=== PATIENT | male | born 1950 | race Caucasian/White ===

== ENCOUNTER 2016-07-26 18:29 | Inpatient (IN) | payer OTHER ==
[~2016-07-26] VITALS: Ht 182.9 cm; Wt 75.0 kg
[2016-07-26 19:54] LABS: BASO # 0.1 x10^3/uL (0.0-0.2); BASO % 1 % (0-3); EOS % 4 % (0-3); HEMATOCRIT 27.6 % (39.0-53.0); LYMPH # 0.5 x10^3/uL (1.0-4.8); LYMPH % 9 % (24-48); MEAN CORPUSCULAR HEMOGLOBIN 29 pg (25-35); MEAN CORPUSCULAR HGB CONC 33 g/dL (31-37); MEAN CORPUSCULAR VOLUME 89 fL (79-100); MONO % 12 % (0-9); NEUT % 75 % (31-73); PLATELET COUNT 281 x10^3/uL (140-400); RED CELL DISTRIBUTION WIDTH 17.6 % (11.5-14.5); WHITE BLOOD COUNT 5.9 x10^3/uL (4.0-11.0)
[2016-07-26 20:02] LABS: CALCIUM 9.3 mg/dL (8.5-10.1); CREATININE 1.3 mg/dL (0.7-1.3); GFR 55.6; POTASSIUM 4.2 mmol/L (3.5-5.1)
[2016-07-26 20:04] LABS: INR 1.2 (0.8-1.1); PROTHROMBIN TIME PATIENT 14.5 SEC (11.7-14.0)
[2016-07-26 20:08] LABS: ALBUMIN 2.1 g/dL (3.4-5.0); DIRECT BILIRUBIN 0.1 mg/dL (0.0-0.2); TOTAL BILIRUBIN 0.3 mg/dL (0.2-1.0); TOTAL PROTEIN 6.9 g/dL (6.4-8.2)
--- NOTE | 2016-07-26 20:12 | PHYS DOC ---
Past Medical History Past Medical History: Arthritis, COPD, Hypertension, Liver Disease Past Surgical History: Other Additional Past Surgical Histo: Bilat Fem., back Smoking: Cigarettes Alcohol Use: None Additional Information: Former etoh use Drug Use: None Adult General Chief Complaint Chief Complaint: DYSPNEA/RESPIRATOY DISTRESS [facility] HPI Patient is a 66 year old male who presents by EMS from home for evaluation of difficulty breathing and abdominal pain. He states he was released from the [facility] [place] yesterday after hospitalization for the same. He received paracentesis of "multiple liters of fluid" and "tested positive for cancer cells in his abdominal fluid". He states they offered rehabilitation placement, but he preferred to go home. He has since decided he cannot function at home due to difficulty breathing and diffuse pain including his abdomen. He states his abdominal pain is better today than when he first presented to the [facility]. He denies fever or chills, nausea or vomiting, diarrhea, cough, chest pain, lightheadedness. He states he has no access to home oxygen. He states he asked the ambulance to take him to the [facility], but they were on diversion. Review of Systems Review of Systems Constitutional: Denies fever or chills [] Eyes: Denies change in visual acuity, redness, or eye pain [] HENT: Denies nasal congestion or sore throat [] Respiratory: Denies cough [] Cardiovascular: No additional information not addressed in HPI [] GI: Denies nausea, vomiting, bloody stools or diarrhea [] : Denies dysuria or hematuria [] Musculoskeletal: Denies back pain or joint pain [] Integument: Denies rash or skin lesions [] Neurologic: Denies headache, focal weakness or sensory changes [] Endocrine: Denies polyuria or polydipsia [] Allergies Allergies Allergies Coded Allergies Type Severity Reaction Last Updated Verified No Known Drug Allergies 07/26/16 No Physical Exam Physical Exam Constitutional: Well developed, thin bordering cachexia, no acute distress, non- toxic appearance. [] HENT: Normocephalic, atraumatic, bilateral external ears normal, oropharynx moist, nose normal. [] Eyes: PERRLA, EOMI. [] Neck: Normal range of motion, no tenderness, supple, no stridor. [] Cardiovascular:Heart rate regular rhythm [] Lungs & Thorax: Bilateral breath sounds clear to auscultation [] Abdomen: Bowel sounds normal, soft, no tenderness, soft ascites present. [] Skin: Warm, dry, no erythema, no rash. [] Back: No tenderness, no CVA tenderness. [] Extremities: No tenderness, ROM intact, no edema. [] Neurologic: Alert and oriented X 3, normal motor function, normal sensory function, no focal deficits noted. [] Psychologic: Affect normal, judgement normal, mood normal. [] Current Patient Data Vital Signs Vital Signs Date Time Temp Pulse Resp B/P Pulse Ox O2 Delivery O2 Flow Rate FiO2 07/26/16 19:45 98 98/58 Nasal Cannula 2 07/26/16 18:53 15 95 07/26/16 18:42 97.8 97.8 Lab Values Laboratory Tests Test 07/26/16 19:45 White Blood Count 5.9x10^3/uL (4.0-11.0) Red Blood Count 3.10x10^6/uL (4.30-5.70) L Hemoglobin 9.0g/dL (13.0-17.5) L Hematocrit 27.6% (39.0-53.0) L Mean Corpuscular Volume 89fL (79-100) Mean Corpuscular Hemoglobin 29pg (25-35) Mean Corpuscular Hemoglobin Concent 33g/dL (31-37) Red Cell Distribution Width 17.6% (11.5-14.5) H Platelet Count 281x10^3/uL (140-400) Neutrophils (%) (Auto) 75% (31-73) H Lymphocytes (%) (Auto) 9% (24-48) L Monocytes (%) (Auto) 12% (0-9) H Eosinophils (%) (Auto) 4% (0-3) H Basophils (%) (Auto) 1% (0-3) Neutrophils # (Auto) 4.4x10^3uL (1.8-7.7) Lymphocytes # (Auto) 0.5x10^3/uL (1.0-4.8) L Monocytes # (Auto) 0.7x10^3/uL (0.0-1.1) Eosinophils # (Auto) 0.2x10^3/uL (0.0-0.7) Basophils # (Auto) 0.1x10^3/uL (0.0-0.2) Prothrombin Time 14.5SEC (11.7-14.0) H Prothrombin Time INR 1.2 (0.8-1.1) H Sodium Level 138mmol/L (136-145) Potassium Level 4.2mmol/L (3.5-5.1) Chloride Level 102mmol/L (98-107) Carbon Dioxide Level 29mmol/L (21-32) Anion Gap 7 (6-14) Blood Urea Nitrogen 31mg/dL (8-26) H Creatinine 1.3mg/dL (0.7-1.3) Estimated GFR (Cockcroft-Gault) 55.6 Glucose Level 124mg/dL (70-99) H Calcium Level 9.3mg/dL (8.5-10.1) Total Bilirubin 0.3mg/dL (0.2-1.0) Direct Bilirubin 0.1mg/dL (0.0-0.2) Aspartate Amino Transferase (AST) 19U/L (15-37) Alanine Aminotransferase (ALT) 22U/L (16-63) Alkaline Phosphatase 198U/L (46-116) H Total Protein 6.9g/dL (6.4-8.2) Albumin 2.1g/dL (3.4-5.0) L Laboratory Tests 07/26/16 19:45 Laboratory Tests 07/26/16 19:45 EKG EKG EKG as interpreted by me as normal sinus rhythm, rate 89, no ST-T changes, normal intervals, no ectopy, low voltage Radiology/Procedures Radiology/Procedures Chest xray as interpreted by me with no acute cardiopulmonary disease process Course & Med Decision Making Course & Med Decision Making Pertinent Labs and Imaging studies reviewed. (See chart for details) It appears he likely has COPD with oxygen requirement with resting sats in mid 80s, but does not have oxygen for home. He also does not feel that he can care for himself at home either. Will admit for placement options. Discussed case with Dr. Warner, who will admit. Helen Disclaimer [place] Disclaimer This electronic medical record was generated, in whole or in part, using a voice recognition dictation system. Departure Departure Impression: Primary Impression: Dyspnea Additional Impression: Abdominal pain Disposition: ADMITTED INPATIENT Condition: STABLE Problem Qualifiers Primary Impression: Dyspnea Dyspnea type: other forms of dyspnea Qualified Code: R06.09 - Other forms of dyspnea Additional Impression: Abdominal pain Abdominal location: generalized Qualified Code: R10.84 - Generalized abdominal pain Jessica LE MD Jul 26, 2016 20:12
--- NOTE | 2016-07-26 20:37 | ACF ---
Admission Forms Criteria LIVER DISEASE COMPLICATIONS Clinical Indications for Admission to Inpatient Care (Place 'X' for any and all applicable criteria): Admission is indicated for patient with ANY ONE of the following(1)(2)(3)(4): [X ]I. Inpatient admission required rather than observation care because of ANY ONE of the following: [ ]a) Hemodynamic instability that is severe or persistent [ ]b) Severe electrolyte abnormalities requiring inpatient care [X ]c) Respiratory compromise that is severe or persistent [ ]d) Coagulation abnormal that is severe or persistent [ ]e) Severe pain requiring acute inpatient management [ ]f) Renal insufficiency that is severe or worsening [ ]g) Metabolic abnormalities (e.g., vomiting, hypoglycemia, acidosis) that are severe or persistent [ ]h) Hypovolemia or hypervolemia that is severe or persistent [ ]i) Absent bowel sounds with complete ileus(2) [ ]j) Signs of intestinal obstruction or peritonitis[A] [ ]k) IV fluid to replace significant ongoing losses (>3 L/m2 per day) [ ]l) Continuous IV infusion of anticoagulation, platelet inhibitor, vasoactive, or antiarrhythmic medication [ ]m) Percutaneous or open drainage (e.g., abscess, biliary tract) procedures [ ]n) Parenteral nutrition regimen that must be implemented on inpatient basis [ X]o) Other condition treatment or monitoring requiring inpatient admission [ ]II. Infected hepatic hydrothorax (eg, empyema) [ ]III. Hepatorenal syndrome (eg, elevated. creatinine with adequate volume status and negative evaluation for other cause)(8) [ ]IV. Spontaneous bacterial peritonitis [ ]V. Suspected infected ascites as indicated by ANY ONE of the following: [ ]a) Temp >100 degrees F (37.8 C ) [ ]b) High WBC count [ ]c) Abdominal pain or tenderness not relieved by paracentesis [ ]. New-onset or worsening hepatic encephalopathy(7) [ ]VII. Suspected fulminant hepatic failure (e.g., acute coagulopathy with hepatic encephalopathy or acute elevation of hepatic transaminases to more than 15 times baseline)(4) [ ]VIII. Acute hepatitis (e.g., ALT and AST at least 3 times baseline) with coagulopathy or severe jaundice as indicated by ANY ONE of the following(9)(10): [ ]a) Bilirubin >20 mg/dL (342 moles/L)(11) [ ]b) Acute elevation of PT to >50% above normal or INR >1.5 [ ] IX. Treatment of injury from hepatotoxin (e.g., acetaminophen) that requires inpatient monitoring [ ] X. Acute fatty liver of Extended stay beyond goal length of stay may be needed for(3)(7): [ ]a) Hepatorenal syndrome [ ]b) Severe or persistent hepatic encephalopathy [ ]c) Renal failure due to other causes associated with cirrhosis (e.g., hypovolemia) [ ]d) Severe or persistent coagulation abnormalities [ ]e) Refractory ascites, volume, or electrolyte abnormality [ ]f) Severe or persistent gastroesophageal bleeding [ ]g) Severe infectious or hepatotoxin-induced hepatitis (eg, acetaminophen) [ ]h) Hemodynamic instability that is severe or persistent The original [facility] content created by [employer] has been revised. The portions of the content which have been revised are identified through the use of italic text or in bold, and [facility] has neither reviewed nor approved the modified material. All other unmodified content is copyright [facility] [employer]. Please see references footnoted in the original [employer] edition 2016 Admission Criteria Met?: Yes DORINA JONES Jul 26, 2016 20:37
[2016-07-26] MEDS ORDERED: ONDANSETRON PF 4 MG/2 ML VIAL. IV PRN (20:45)
[2016-07-26] MEDS ORDERED: ACETAMINOPHEN 325 MG TABLET. PO PRN (20:45)
[2016-07-26 22:00] VITALS: BP 85/49
[2016-07-26] MEDS ORDERED: OXYCODONE IR 30 MG TABLET. PO PRN (22:00)
[2016-07-26] MEDS: OXYCODONE IR 5 MG TABLET. PO PRN (22:13)
--- NOTE | 2016-07-26 22:35 | HP ---
ADMIT DATE: 07/26/2016 CHIEF COMPLAINT: Failure to thrive, acute hypoxic respiratory failure. HISTORY OF PRESENT ILLNESS: The patient is a 66-year-old gentleman with longstanding history of failure to thrive and recent development of ascites for which he actually had been seen at the [facility] for [facility], having left [facility] in [place] just yesterday. He presented to the Emergency Room here after going home without oxygen and being unable to cope with his hypoxia and various other medical issues. He relates that he had been at the [facility] for about 10 days due to his ascites. This had tapped a couple of times, mainly for diagnostic purposes. He was told that he had malignant cells in the fluid. Apparently scans were obtained of his belly and chest and specifically pancreas, which did not reveal any primary source for his malignant ascites. He was told that treatment could be done on an outpatient basis, but he declined SNF placement and preferred to go home yesterday. PAST MEDICAL HISTORY: Hypertension, question of liver disease. FAMILY HISTORY: Noncontributory. SOCIAL HISTORY: Lives with a couple of roommates. Quit smoking many years ago, as well as drinking and marijuana, has been on probation for the past 4 years, prohibiting illicit drugs. He is unaware of hepatitis status. ALLERGIES: No known drug allergies. MEDICATIONS: MAR reconciled with home medications. REVIEW OF SYSTEMS: Positive for shortness of breath. No cough. There is significant abdominal distention with fluid. Denies any pain in his abdomen. No nausea or diarrhea. Denies any chest pain or any palpitations. He relates that he had a weight loss of approximately 50 pounds over the past year and a half. Unsure what really caused this. No dysphagia, early satiety, etc. Positive swelling in his lower extremities over the past 3 weeks as well. Rest of organ system review is negative. PHYSICAL EXAMINATION: VITAL SIGNS: From today show a blood pressure of 90/50, heart rate of 92, respiratory rate of 17. He is afebrile. GENERAL: This is a cachectic appearing gentleman, alert and oriented, in mild respiratory distress with O2 by nasal cannula. HEENT: Shows cachectic features with sunken temples. Oral mucosa is pink and moist. NECK: Supple. LUNGS: Fairly clear bilaterally. CARDIOVASCULAR: Regular rate and rhythm. ABDOMEN: Moderately distended, still soft, nontender. EXTREMITIES: Show 1 to 2+ edema with some wrinkling indicating recent shrinkage. SKIN: Very thick and dry over his lower extremities, purplish discoloration in the soles of feet and toes. LABORATORY DATA: CBC from today shows a WBC of 5.9, hemoglobin 9.0, platelets of 281. BUN and creatinine of 31 and 1.3. Electrolytes within normal. LFTs essentially normal save for alkaline phosphatase at 198, albumin at 2.1. Coags at 1.2. IMAGING STUDIES: Chest x-ray was obtained in the Emergency Room, reviewed by myself, it revealed no acute cardiopulmonary abnormality. 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 We will have to obtain [facility]. The patient himself would [facility] [place]. Unfortunately, they were on diversion tonight and EMS brought him here. I completely agree as records as well as his oncologist are there. In the meantime, will try and keep him comfortable with O2, respiratory treatments and pain medications. Labs are relatively stable. I discussed with him that his disease certainly is not curable and may be difficult to treat in his current status, he is aware. With a history of cancer, he is at high risk for blood clotting. His coags as well as platelets are adequate at this point. We will start Lovenox subq. We will also give PPI p.o. FABRICIO OLVERA MD DR: ROSELIA/nts JOB#: [id number] / [id number] RAINER
[2016-07-26] MEDS ORDERED: PROAIR HFA8.5 GM INH (22:37)
[2016-07-26] MEDS ORDERED: OXYC10TA PO (22:37)
[2016-07-26] MEDS ORDERED: IBUP200T58 PO (22:37)
[2016-07-26] MEDS ORDERED: ALBU2.5V5 NEB (22:37)
[2016-07-26 23:00] VITALS: BP 85/49
[2016-07-26] MEDS: IPRATRPIUM/ALBUTEROL 0.5/2.5MG 3 ML NEBU. NEB SCH (23:43)
[2016-07-27 01:26] LABS: OBC FLU VALID
[2016-07-27] MEDS: OXYCODONE IR 5 MG TABLET. PO PRN ×5 (02:50→20:42)
[2016-07-27 03:00] VITALS: BP 82/50
[2016-07-27] MEDS: IPRATRPIUM/ALBUTEROL 0.5/2.5MG 3 ML NEBU. NEB SCH ×4 (06:07→18:13)
--- NOTE | 2016-07-27 06:34 | EKG ---
[facility] [address] [place] [address] Test Date: 2016-07-26 Test Time: 19:01:47 Pat Name: DARLENE HURD Department: Room: [facility] Gender: M Flumer: : 1950 Requested By: Jessica EL Order Number: [id number] Reading MD: Mala Connelly Measurements Intervals [place] Rate: 89 P: [place]: QRS: -127 QRSD: 126 T: 64 QT: 404 QTc: 499 Interpretive Statements SINUS RHYTHM LOW VOLTAGE NON SPECIFIC INTRAVENTRICULAR BLOCK CONSIDER RIGHT VENTRICULAR HYPERTROPHY ABNORMAL ECG RI6.01 No previous ECG available for comparison Electronically Signed On 07-29-2016 20:00:13 BEAD FORMING MACHINE OPERATOR by Mala Connelly
[2016-07-27 07:00] VITALS: BP 89/51
--- NOTE | 2016-07-27 07:59 | RAD ---
Indication shortness of breath for several months. A single view of the chest was obtained. No prior imaging is available. There are probable chronic background changes of emphysema or fibrosis. There is no consolidated pneumonia. Significant pleural fluid is not present. There is no pneumothorax. Bony structures appear grossly intact. IMPRESSION: Chronic changes. No definite acute finding seen in the chest
[2016-07-27] MEDS: POLYETHYLENE GLYCOL 3350 17 GM PACKET. PO SCH (08:45)
[2016-07-27 11:00] VITALS: BP 84/46
[2016-07-27] MEDS ORDERED: ALBUTEROL SULFATE 2.5 MG/3 ML NEBU. NEB PRN (12:00)
[2016-07-27] MEDS ORDERED: NON FORMULARY ITEM (Albuterol Sulfate (Proair Hfa Inhaler) 1 PUFF) INH PRN (12:00)
[2016-07-27] MEDS ORDERED: OXYCODONE IR 5 MG TABLET. PO PRN (12:00)
--- NOTE | 2016-07-27 13:27 | PDOC ---
PROGRESS NOTES Chief Complaint Chief Complaint sob 1. COPD 2. Arthritis, 3. HTN 4. Liver Disease, no details 5. ascites, possible 2/2 cirrohsis, maligancy cells was [facility]: 1. duoneb, albuterol 2. gi consult 3. lower ext US, abd US 4. PAIN CONTRol dvt ppx SW for [facility], pt wants to be transferred. History of Present Illness History of Present Illness on 2L nc ,Baseline same pt [facility], for ascites ,as per pt, there as malignancy, but not sure the type Vitals Vitals Vital Signs Date Time Temp Pulse Resp B/P Pulse Ox O2 Delivery O2 Flow Rate FiO2 07/27/16 13:09 18 97 Nasal Cannula 2.0 07/27/16 11:00 97.3 87 84/46 97.3 Physical Exam General: Alert, Oriented X3, Cooperative Heart: Regular rate, Normal S1 Lungs: Crackles (bl mild) Abdomen: Normal bowel sounds, Soft, No tenderness, Other (moderate distended) Extremities: No clubbing, No cyanosis, Other (bl lower ext severe adema) Labs LABS Laboratory Tests Test 07/26/16 19:45 07/27/16 00:30 White Blood Count 5.9x10^3/uL (4.0-11.0) Red Blood Count 3.10x10^6/uL (4.30-5.70) Hemoglobin 9.0g/dL (13.0-17.5) Hematocrit 27.6% (39.0-53.0) Mean Corpuscular Volume 89fL (79-100) Mean Corpuscular Hemoglobin 29pg (25-35) Mean Corpuscular Hemoglobin Concent 33g/dL (31-37) Red Cell Distribution Width 17.6% (11.5-14.5) Platelet Count 281x10^3/uL (140-400) Neutrophils (%) (Auto) 75% (31-73) Lymphocytes (%) (Auto) 9% (24-48) Monocytes (%) (Auto) 12% (0-9) Eosinophils (%) (Auto) 4% (0-3) Basophils (%) (Auto) 1% (0-3) Neutrophils # (Auto) 4.4x10^3uL (1.8-7.7) Lymphocytes # (Auto) 0.5x10^3/uL (1.0-4.8) Monocytes # (Auto) 0.7x10^3/uL (0.0-1.1) Eosinophils # (Auto) 0.2x10^3/uL (0.0-0.7) Basophils # (Auto) 0.1x10^3/uL (0.0-0.2) Prothrombin Time 14.5SEC (11.7-14.0) Prothromb Time International Ratio 1.2 (0.8-1.1) Sodium Level 138mmol/L (136-145) Potassium Level 4.2mmol/L (3.5-5.1) Chloride Level 102mmol/L (98-107) Carbon Dioxide Level 29mmol/L (21-32) Anion Gap 7 (6-14) Blood Urea Nitrogen 31mg/dL (8-26) Creatinine 1.3mg/dL (0.7-1.3) Estimated GFR (Cockcroft-Gault) 55.6 Glucose Level 124mg/dL (70-99) Calcium Level 9.3mg/dL (8.5-10.1) Total Bilirubin 0.3mg/dL (0.2-1.0) Direct Bilirubin 0.1mg/dL (0.0-0.2) Aspartate Amino Transf (AST/SGOT) 19U/L (15-37) Alanine Aminotransferase (ALT/SGPT) 22U/L (16-63) Alkaline Phosphatase 198U/L (46-116) Total Protein 6.9g/dL (6.4-8.2) Albumin 2.1g/dL (3.4-5.0) Influenza Type A Antigen Negative (NEGATIVE) Influenza Type B Antigen Negative (NEGATIVE) Review of Systems Review of Systems no fever, chills, sob or chest pain Assessment and Plan Assessmemt and Plan Problems Medical Problems: (1) Abdominal pain Status: Acute (2) Dyspnea Status: Acute (3) Hypoxemia Status: Acute Problems: Comment Review of Relevant I have reviewed the following items rodrigo (where applicable) has been applied. Labs Laboratory Tests Test 07/26/16 19:45 07/27/16 00:30 White Blood Count 5.9x10^3/uL (4.0-11.0) Red Blood Count 3.10x10^6/uL (4.30-5.70) Hemoglobin 9.0g/dL (13.0-17.5) Hematocrit 27.6% (39.0-53.0) Mean Corpuscular Volume 89fL (79-100) Mean Corpuscular Hemoglobin 29pg (25-35) Mean Corpuscular Hemoglobin Concent 33g/dL (31-37) Red Cell Distribution Width 17.6% (11.5-14.5) Platelet Count 281x10^3/uL (140-400) Neutrophils (%) (Auto) 75% (31-73) Lymphocytes (%) (Auto) 9% (24-48) Monocytes (%) (Auto) 12% (0-9) Eosinophils (%) (Auto) 4% (0-3) Basophils (%) (Auto) 1% (0-3) Neutrophils # (Auto) 4.4x10^3uL (1.8-7.7) Lymphocytes # (Auto) 0.5x10^3/uL (1.0-4.8) Monocytes # (Auto) 0.7x10^3/uL (0.0-1.1) Eosinophils # (Auto) 0.2x10^3/uL (0.0-0.7) Basophils # (Auto) 0.1x10^3/uL (0.0-0.2) Prothrombin Time 14.5SEC (11.7-14.0) Prothromb Time International Ratio 1.2 (0.8-1.1) Sodium Level 138mmol/L (136-145) Potassium Level 4.2mmol/L (3.5-5.1) Chloride Level 102mmol/L (98-107) Carbon Dioxide Level 29mmol/L (21-32) Anion Gap 7 (6-14) Blood Urea Nitrogen 31mg/dL (8-26) Creatinine 1.3mg/dL (0.7-1.3) Estimated GFR (Cockcroft-Gault) 55.6 Glucose Level 124mg/dL (70-99) Calcium Level 9.3mg/dL (8.5-10.1) Total Bilirubin 0.3mg/dL (0.2-1.0) Direct Bilirubin 0.1mg/dL (0.0-0.2) Aspartate Amino Transf (AST/SGOT) 19U/L (15-37) Alanine Aminotransferase (ALT/SGPT) 22U/L (16-63) Alkaline Phosphatase 198U/L (46-116) Total Protein 6.9g/dL (6.4-8.2) Albumin 2.1g/dL (3.4-5.0) Influenza Type A Antigen Negative (NEGATIVE) Influenza Type B Antigen Negative (NEGATIVE) Laboratory Tests Test 07/26/16 19:45 07/27/16 00:30 White Blood Count 5.9x10^3/uL (4.0-11.0) Red Blood Count 3.10x10^6/uL (4.30-5.70) Hemoglobin 9.0g/dL (13.0-17.5) Hematocrit 27.6% (39.0-53.0) Mean Corpuscular Volume 89fL (79-100) Mean Corpuscular Hemoglobin 29pg (25-35) Mean Corpuscular Hemoglobin Concent 33g/dL (31-37) Red Cell Distribution Width 17.6% (11.5-14.5) Platelet Count 281x10^3/uL (140-400) Neutrophils (%) (Auto) 75% (31-73) Lymphocytes (%) (Auto) 9% (24-48) Monocytes (%) (Auto) 12% (0-9) Eosinophils (%) (Auto) 4% (0-3) Basophils (%) (Auto) 1% (0-3) Neutrophils # (Auto) 4.4x10^3uL (1.8-7.7) Lymphocytes # (Auto) 0.5x10^3/uL (1.0-4.8) Monocytes # (Auto) 0.7x10^3/uL (0.0-1.1) Eosinophils # (Auto) 0.2x10^3/uL (0.0-0.7) Basophils # (Auto) 0.1x10^3/uL (0.0-0.2) Prothrombin Time 14.5SEC (11.7-14.0) Prothromb Time International Ratio 1.2 (0.8-1.1) Sodium Level 138mmol/L (136-145) Potassium Level 4.2mmol/L (3.5-5.1) Chloride Level 102mmol/L (98-107) Carbon Dioxide Level 29mmol/L (21-32) Anion Gap 7 (6-14) Blood Urea Nitrogen 31mg/dL (8-26) Creatinine 1.3mg/dL (0.7-1.3) Estimated GFR (Cockcroft-Gault) 55.6 Glucose Level 124mg/dL (70-99) Calcium Level 9.3mg/dL (8.5-10.1) Total Bilirubin 0.3mg/dL (0.2-1.0) Direct Bilirubin 0.1mg/dL (0.0-0.2) Aspartate Amino Transf (AST/SGOT) 19U/L (15-37) Alanine Aminotransferase (ALT/SGPT) 22U/L (16-63) Alkaline Phosphatase 198U/L (46-116) Total Protein 6.9g/dL (6.4-8.2) Albumin 2.1g/dL (3.4-5.0) Influenza Type A Antigen Negative (NEGATIVE) Influenza Type B Antigen Negative (NEGATIVE) Medications Current Medications Ondansetron HCl (Zofran) 4 mg PRN Q8HRS PRN IV NAUSEA/VOMITING; Start 07/26/16 at 20:45; Stop 07/27/16 at 20:44 Acetaminophen (Tylenol) 650 mg PRN Q4HRS PRN PO FEVER; Start 07/26/16 at 20:45 ; Stop 07/27/16 at 20:44 Oxycodone HCl (Roxicodone) 15 mg PRN Q4HRS PRN PO SEVERE PAIN; Start 07/26/16 at 22:00; Stop 07/26/16 at 22:06; Status DC Polyethylene Glycol (miraLAX PACKET) 17 gm DAILY PO ; Start 07/27/16 at 09:00 Albuterol/ Ipratropium (Duoneb) 3 ml RTQID NEB Last administered on 07/27/16t 12:30; Start 07/26/16 at 23:00 Oxycodone HCl (Roxicodone) 15 mg PRN Q4HRS PRN PO SEVERE PAIN Last administered on 07/27/16 11:56; Start 07/26/16 at 22:06 Albuterol Sulfate (Ventolin Neb Soln) 2.5 mg PRN Q4HRS PRN NEB SHORTNESS OF BREATH; Start 07/27/16 at 12:00 Non-Formulary Medication 1 puff PRN Q6HRS PRN INH SHORTNESS OF BREATH; Start at 12:00; Status UNV Oxycodone HCl (Roxicodone) 40 mg PRN Q6HRS PRN PO PAIN; Start 07/27/16 at 12:00 Active Scripts Active Reported Advil (Ibuprofen) 200 Mg Tablet 400 Mg PO PRN PRN Proair Hfa Inhaler (Albuterol Sulfate) 8.5 Gm Hfa.aer.ad 1 Puff INH PRN Q6HRS PRN Albuterol Sulfate Neb Soln (Albuterol Sulfate) 2.5 Mg/3 Ml Vial.neb 1 Vial NEB PRN Q4HRS Oxycodone Hcl 10 Mg Tablet 40 Mg PO PRN Q4-6HRS PRN Vitals/I & O Vital Sign - Last 24 Hours 07/26/16 07/26/16 07/26/16 07/26/16 18:42 18:53 19:45 20:09 Temp 97.8 97.8 Pulse 93 90 98 94 Resp B/P 94/54 93/58 98/58 90/53 Pulse Ox 88 95 100 O2 Delivery Room Air Nasal Cannula Nasal Cannula Nasal Cannula O2 Flow Rate 2 2 2 07/26/16 07/26/16 07/26/16 07/26/16 20:32 21:30 22:00 22:13 Temp 96.4 96.4 Pulse 92 96 Resp B/P 90/50 85/49 Pulse Ox 96 92 O2 Delivery Nasal Cannula Nasal Cannula Nasal Cannula Nasal Cannula O2 Flow Rate 2 2.0 2.0 2.0 07/26/16 07/26/16 07/27/16 07/27/16 23:00 23:39 02:50 03:00 Temp 96.4 96.6 96.4 96.6 Pulse 96 95 Resp B/P 85/49 82/50 Pulse Ox 92 93 98 O2 Delivery Nasal Cannula Nasal Cannula Nasal Cannula Nasal Cannula O2 Flow Rate 2.0 2.0 2.0 2.0 07/27/16 07/27/16 07/27/16 07/27/16 06:07 06:52 07:00 08:00 Temp 97.6 97.6 Pulse 93 Resp 18 20 B/P 89/51 Pulse Ox 95 96 O2 Delivery Nasal Cannula Nasal Cannula Nasal Cannula Nasal Cannula O2 Flow Rate 2.0 2.0 2.0 2.0 07/27/16 07/27/16 07/27/16 07/27/16 11:00 11:56 12:30 13:09 Temp 97.3 97.3 Pulse 87 Resp 20 18 18 B/P 84/46 Pulse Ox 97 97 97 O2 Delivery Nasal Cannula Nasal Cannula Nasal Cannula Nasal Cannula O2 Flow Rate 2.0 2.0 2.0 2.0 Intake and Output 07/26/16 07/26/16 07/27/16 15:00 23:00 07:00 Intake Total 200 ml 440 ml Balance 200 ml 440 ml RAMYA NELSON MD Jul 27, 2016 13:27
[2016-07-27] MEDS ORDERED: ONDANSETRON PF 4 MG/2 ML VIAL. IV PRN (13:30)
[2016-07-27] MEDS ORDERED: ACETAMINOPHEN 325 MG TABLET. PO PRN (13:30)
[2016-07-27] MEDS: ENOXAPARIN 40 MG/0.4 ML DISP.SYRIN. SQ SCH (14:00)
--- NOTE | 2016-07-27 14:42 | PDOC2 ---
GI CONSULT Reason For Consult: Ascites HPI: HPI: 66 y/o male w/ recent hospital admission at the [facility] for ascites (discharged to home on 07/25 after declining rehab), [facility] last [facility] [place] records unavailable, but pt relates that he underwent paracentesis x 2 w/ removal of 1L of fluid on each occasion; he was told that malignant cells were found in the fluid but imaging revealed no source. Outpatient treatment was planned. He still has abdominal distention and pain, leg pain (mostly right), and back pain. He is SOA. He has been losing weight and not eating well recently (decreased appetite). H/o occasional GERD treated w/ Mylanta PRN. Last BM was 2-3 days ago. Denies previous h/o liver disease. Has had EGD and colonoscopy previously (also at [place]). PMH: PMH: HTN, COPD, GERD, arthritis, femoral bypass, back surgery FH: Family History: No pertinent hx Social History: Smoke: Quit ALCOHOL: other (quit) Drugs: Other (quit) ROS: GEN: Denies fevers, chills, sweats HEENT: Denies blurred vision, sore throat CV: Denies chest pain RESP: +SOA GI: Per HPI : Denies hematuria, dysuria ENDO: +weight loss NEURO: Denies confusion, dizziness MSK: +LE pain SKIN: Denies jaundice, pruritus VItals: Vitals: Vital Signs Date Time Temp Pulse Resp B/P Pulse Ox O2 Delivery O2 Flow Rate FiO2 07/27/16 13:09 18 97 Nasal Cannula 2.0 07/27/16 11:00 97.3 87 84/46 97.3 Labs: Labs: Laboratory Tests Test 07/26/16 19:45 07/27/16 00:30 White Blood Count 5.9x10^3/uL (4.0-11.0) Red Blood Count 3.10x10^6/uL (4.30-5.70) Hemoglobin 9.0g/dL (13.0-17.5) Hematocrit 27.6% (39.0-53.0) Mean Corpuscular Volume 89fL (79-100) Mean Corpuscular Hemoglobin 29pg (25-35) Mean Corpuscular Hemoglobin Concent 33g/dL (31-37) Red Cell Distribution Width 17.6% (11.5-14.5) Platelet Count 281x10^3/uL (140-400) Neutrophils (%) (Auto) 75% (31-73) Lymphocytes (%) (Auto) 9% (24-48) Monocytes (%) (Auto) 12% (0-9) Eosinophils (%) (Auto) 4% (0-3) Basophils (%) (Auto) 1% (0-3) Neutrophils # (Auto) 4.4x10^3uL (1.8-7.7) Lymphocytes # (Auto) 0.5x10^3/uL (1.0-4.8) Monocytes # (Auto) 0.7x10^3/uL (0.0-1.1) Eosinophils # (Auto) 0.2x10^3/uL (0.0-0.7) Basophils # (Auto) 0.1x10^3/uL (0.0-0.2) Prothrombin Time 14.5SEC (11.7-14.0) Prothromb Time International Ratio 1.2 (0.8-1.1) Sodium Level 138mmol/L (136-145) Potassium Level 4.2mmol/L (3.5-5.1) Chloride Level 102mmol/L (98-107) Carbon Dioxide Level 29mmol/L (21-32) Anion Gap 7 (6-14) Blood Urea Nitrogen 31mg/dL (8-26) Creatinine 1.3mg/dL (0.7-1.3) Estimated GFR (Cockcroft-Gault) 55.6 Glucose Level 124mg/dL (70-99) Calcium Level 9.3mg/dL (8.5-10.1) Total Bilirubin 0.3mg/dL (0.2-1.0) Direct Bilirubin 0.1mg/dL (0.0-0.2) Aspartate Amino Transf (AST/SGOT) 19U/L (15-37) Alanine Aminotransferase (ALT/SGPT) 22U/L (16-63) Alkaline Phosphatase 198U/L (46-116) Total Protein 6.9g/dL (6.4-8.2) Albumin 2.1g/dL (3.4-5.0) Influenza Type A Antigen Negative (NEGATIVE) Influenza Type B Antigen Negative (NEGATIVE) Allergies: Coded Allergies: No Known Drug Allergies (Unverified , 07/26/16) Medications: Current Medications Medications (Trade) Dose Ordered Sig/Ekrrie Route PRN Reason Start Time Stop Time Status Last Admin Dose Admin Albuterol/ Ipratropium (Duoneb) 3 ml RTQID NEB 07/26/16 23:00 07/27/16 12:30 Oxycodone HCl (Roxicodone) 15 mg PRN Q4HRS PRN PO SEVERE PAIN 07/26/16 22:06 07/27/16 11:56 Imaging: Imaging: CXR 07/26/16 IMPRESSION: Chronic changes. No definite acute finding seen in the chest. PE: GEN: in chair, moaning in pain, thin HEENT: Atraumatic LUNGS: crackles bilaterally HEART: RRR ABD: BS+, distended/tight, tender diffusely EXTREMITY: BBLE edema SKIN: No jaundice NEURO/PSYCH: A & O 3 A/P: A/P: Ascites, cancer of unknown origin -recent paracentesis x 2 at [place], malignant fluid -had imaging at [place] which was apparently unrevealing for source -denies liver disease Abd pain, weight loss, decreased appetite -abd US ordered BLE edema -LE doppler ordered SOA -- Pt wants to transfer back to [place]. Seems need repeat paracentesis. JER CUMMINGS Jul 27, 2016 14:42
[2016-07-27 15:00] VITALS: BP 77/43
--- NOTE | 2016-07-27 16:15 | RAD ---
Indication swelling. Grayscale color Doppler and spectral imaging was performed. Examination was targeted to the veins of the lower extremities. Bilaterally the common femoral, femoral and popliteal vessels demonstrate normal flow compressibility and augmentation. No thrombus is seen. The visualized calf veins bilaterally appear unremarkable. IMPRESSION: Negative bilateral lower extremity venous analysis for DVT
--- NOTE | 2016-07-27 16:16 | RAD ---
Limited sonogram of the abdomen Indications: Bloating. Ascites. Findings: Sonography of all 4 quadrants of the abdomen was performed. Large amount of ascites is seen. Within the right upper quadrant, the AP dimension of the ascites is 12.1 cm. Within the right lower quadrant, the AP dimension is 8.8 cm. Within the left upper quadrant, the AP dimension is 22.9 cm. Within the left lower quadrant, the AP dimension is 15.1 cm. IMPRESSION: Large amount of ascites.
[2016-07-27 19:00] VITALS: BP 85/49
[2016-07-27 23:00] VITALS: BP 81/45
[2016-07-28] VITALS (13 sets, daily range): BP systolic 70–89; BP diastolic 34–50
[2016-07-28] MEDS: OXYCODONE IR 5 MG TABLET. PO PRN ×4 (02:23→20:59)
[2016-07-28] MEDS: IPRATRPIUM/ALBUTEROL 0.5/2.5MG 3 ML NEBU. NEB SCH ×4 (06:51→19:27)
[2016-07-28] MEDS: POLYETHYLENE GLYCOL 3350 17 GM PACKET. PO SCH (08:38)
--- NOTE | 2016-07-28 10:36 | PDOC ---
Provider Note Provider Note The sono guided paracentesis was performed without difficulty with 7000 cc of bloody fluid removed. A sample was sent to the lab for appropriate studies. The patient tolerated the procedure well and was returned to the floor in stable condition. PANKAJ MILLER MD Jul 28, 2016 10:36
--- NOTE | 2016-07-28 10:49 | RAD ---
Ultrasound-guided paracentesis, 07/28/2016: History: Ascites Preliminary scans demonstrated a large volume of ascites throughout the abdomen. An appropriate spot for paracentesis was marked on the skin surface laterally on the right. Under local anesthesia and aseptic conditions a 6 Polish safetycentesis catheter was placed into a large collection of ascites in the right flank region. Bloody ascites was encountered in this patient with a history of malignant ascites. A total of 7000 cc of fluid was removed. A sample was sent to the lab for appropriate studies. There is residual ascites, however, removal of additional fluid was not considered to be advisable due to the patient's poor clinical condition and the risk of hypotension. The patient tolerated the procedure well and was returned to the floor in stable condition.
[2016-07-28] MEDS: MORPHINE SULFATE 2 MG/ML DISP.SYRIN. IV PRN (12:15)
[2016-07-28] MEDS ORDERED: ALBUMIN HUMAN 25% 100 ML IV ONE ×2 (13:00→15:30)
[2016-07-28] MEDS: ENOXAPARIN 40 MG/0.4 ML DISP.SYRIN. SQ SCH (13:24)
--- NOTE | 2016-07-28 15:25 | PDOC ---
PROGRESS NOTES Chief Complaint Chief Complaint sob 1. COPD 2. Arthritis, 3. HTN 4. Liver Disease, no details 5. ascites, possible 2/2 cirrohsis, maligancy cells was found as per [place] 6. anemia, normocytic 7. body and bone pain 8. hypotension, likely 2/2 liver dz, asymptomatic plan: 1. duoneb, albuterol 2. gi consulted, paracentesis 07/28 7L, Result pending 3. lower ext US neg for DVT, abd US done 4. PAIN CONTRol dvt ppx [facility] for [facility], pt wants to be transferred. ALBUmin 25% 50g x1 07/28 bone scan to rule out bone mets History of Present Illness History of Present Illness on 2L nc ,Baseline same pt [place] [facility] 2 [facility] ago, for ascites ,as per pt, there as malignancy, but not sure the type paracentesis on 07/27 7L, abd much soft low BP WHOLE body pain Vitals Vitals Vital Signs Date Time Temp Pulse Resp B/P Pulse Ox O2 Delivery O2 Flow Rate FiO2 07/28/16 14:50 96.3 93 20 74/38 85 Room Air 96.3 07/28/16 14:44 2.0 Physical Exam General: Alert, Oriented X3, Cooperative Heart: Regular rate, Normal S1 Lungs: Crackles (bl mild) Abdomen: Normal bowel sounds, Soft, No tenderness, Other (moderate distended) Extremities: No clubbing, No cyanosis, Other (bl lower ext severe adema) Review of Systems Review of Systems no fever, chills, sob or chest pain Assessment and Plan Assessmemt and Plan Problems Medical Problems: (1) Abdominal pain Status: Acute (2) Dyspnea Status: Acute (3) Hypoxemia Status: Acute Problems: Comment Review of Relevant I have reviewed the following items rodrigo (where applicable) has been applied. Labs Laboratory Tests Test 07/26/16 19:45 07/27/16 00:30 White Blood Count 5.9x10^3/uL (4.0-11.0) Red Blood Count 3.10x10^6/uL (4.30-5.70) Hemoglobin 9.0g/dL (13.0-17.5) Hematocrit 27.6% (39.0-53.0) Mean Corpuscular Volume 89fL (79-100) Mean Corpuscular Hemoglobin 29pg (25-35) Mean Corpuscular Hemoglobin Concent 33g/dL (31-37) Red Cell Distribution Width 17.6% (11.5-14.5) Platelet Count 281x10^3/uL (140-400) Neutrophils (%) (Auto) 75% (31-73) Lymphocytes (%) (Auto) 9% (24-48) Monocytes (%) (Auto) 12% (0-9) Eosinophils (%) (Auto) 4% (0-3) Basophils (%) (Auto) 1% (0-3) Neutrophils # (Auto) 4.4x10^3uL (1.8-7.7) Lymphocytes # (Auto) 0.5x10^3/uL (1.0-4.8) Monocytes # (Auto) 0.7x10^3/uL (0.0-1.1) Eosinophils # (Auto) 0.2x10^3/uL (0.0-0.7) Basophils # (Auto) 0.1x10^3/uL (0.0-0.2) Prothrombin Time 14.5SEC (11.7-14.0) Prothromb Time International Ratio 1.2 (0.8-1.1) Sodium Level 138mmol/L (136-145) Potassium Level 4.2mmol/L (3.5-5.1) Chloride Level 102mmol/L (98-107) Carbon Dioxide Level 29mmol/L (21-32) Anion Gap 7 (6-14) Blood Urea Nitrogen 31mg/dL (8-26) Creatinine 1.3mg/dL (0.7-1.3) Estimated GFR (Cockcroft-Gault) 55.6 Glucose Level 124mg/dL (70-99) Calcium Level 9.3mg/dL (8.5-10.1) Total Bilirubin 0.3mg/dL (0.2-1.0) Direct Bilirubin 0.1mg/dL (0.0-0.2) Aspartate Amino Transf (AST/SGOT) 19U/L (15-37) Alanine Aminotransferase (ALT/SGPT) 22U/L (16-63) Alkaline Phosphatase 198U/L (46-116) Total Protein 6.9g/dL (6.4-8.2) Albumin 2.1g/dL (3.4-5.0) Influenza Type A Antigen Negative (NEGATIVE) Influenza Type B Antigen Negative (NEGATIVE) Medications Current Medications Ondansetron HCl (Zofran) 4 mg PRN Q8HRS PRN IV NAUSEA/VOMITING; Start 07/26/16 at 20:45; Stop 07/27/16 at 20:44; Status DC Acetaminophen (Tylenol) 650 mg PRN Q4HRS PRN PO FEVER; Start 07/26/16 at 20:45 ; Stop 07/27/16 at 20:44; Status DC Oxycodone HCl (Roxicodone) 15 mg PRN Q4HRS PRN PO SEVERE PAIN; Start 07/26/16 at 22:00; Stop 07/26/16 at 22:06; Status DC Polyethylene Glycol (miraLAX PACKET) 17 gm DAILY PO ; Start 07/27/16 at 09:00 Albuterol/ Ipratropium (Duoneb) 3 ml RTQID NEB Last administered on 07/28/16t 11:02; Start 07/26/16 at 23:00 Oxycodone HCl (Roxicodone) 15 mg PRN Q4HRS PRN PO SEVERE PAIN Last administered on 07/28/16t 13:44; Start 07/26/16 at 22:06 Albuterol Sulfate (Ventolin Neb Soln) 2.5 mg PRN Q4HRS PRN NEB SHORTNESS OF BREATH; Start 07/27/16 at 12:00 Non-Formulary Medication 1 puff PRN Q6HRS PRN INH SHORTNESS OF BREATH; Start at 12:00; Status UNV Oxycodone HCl (Roxicodone) 40 mg PRN Q6HRS PRN PO PAIN; Start 07/27/16 at 12:00 ; Stop 07/27/16 at 13:26; Status DC Acetaminophen (Tylenol) 650 mg PRN Q6HRS PRN PO MILD PAIN / TEMP; Start at 13:30 Ondansetron HCl (Zofran) 4 mg PRN Q6HRS PRN IV NAUSEA/VOMITING; Start 07/27/16 at 13:30 Enoxaparin Sodium (Lovenox 40mg Syringe) 40 mg Q24H SQ ; Start 07/27/16 at 14:00 Morphine Sulfate 2 mg 2 mg PRN Q4HRS PRN IV PAIN SEV Last administered on t 12:15; Start 07/28/16 at 12:15 Albumin Human (Albuminar) 100 ml @ 100 mls/hr 1X ONCE IV Last administered on 07/28/16t 13:43; Start 07/28/16 at 13:00; Stop 07/28/16 at 13:59; Status DC Active Scripts Active Reported Advil (Ibuprofen) 200 Mg Tablet 400 Mg PO PRN PRN Proair Hfa Inhaler (Albuterol Sulfate) 8.5 Gm Hfa.aer.ad 1 Puff INH PRN Q6HRS PRN Albuterol Sulfate Neb Soln (Albuterol Sulfate) 2.5 Mg/3 Ml Vial.neb 1 Vial NEB PRN Q4HRS Oxycodone Hcl 10 Mg Tablet 40 Mg PO PRN Q4-6HRS PRN Vitals/I & O Vital Sign - Last 24 Hours 07/27/16 07/27/16 07/27/16 07/27/16 15:56 16:07 18:13 19:00 Temp 97.9 97.9 Pulse 91 Resp 18 20 B/P 85/49 Pulse Ox 94 97 O2 Delivery Nasal Cannula Nasal Cannula Nasal Cannula Nasal Cannula O2 Flow Rate 2.0 2.0 2.0 2.0 07/27/16 07/27/16 07/27/16 07/28/16 20:00 20:42 23:00 02:23 Temp 96.3 96.3 Pulse 89 Resp 21 B/P 81/45 Pulse Ox 94 O2 Delivery Nasal Cannula Nasal Cannula Nasal Cannula Nasal Cannula O2 Flow Rate 2.0 2.0 07/28/16 07/28/16 07/28/16 07/28/16 03:00 06:51 07:25 08:00 Temp 97.1 97.1 Pulse 80 93 Resp 20 20 B/P 89/41 80/50 Pulse Ox 94 96 91 O2 Delivery Nasal Cannula Nasal Cannula Nasal Cannula Nasal Cannula O2 Flow Rate 2.0 2.0 2.0 2.0 07/28/16 07/28/16 07/28/16 07/28/16 08:37 11:01 11:07 11:30 Temp 95.7 95.7 Pulse 101 87 Resp 18 20 B/P 74/40 74/34 Pulse Ox 91 100 98 61 O2 Delivery Nasal Cannula Nasal Cannula Nasal Cannula O2 Flow Rate 2.0 2.0 2.0 07/28/16 07/28/16 07/28/16 07/28/16 11:45 12:00 12:15 12:15 Pulse 97 94 B/P 80/41 75/40 83/40 Pulse Ox 95 98 97 O2 Delivery Nasal Cannula O2 Flow Rate 2.0 07/28/16 07/28/16 07/28/16 07/28/16 12:45 12:45 13:15 13:44 Pulse 78 104 Resp 16 16 B/P 85/38 70/41 Pulse Ox 73 71 71 71 O2 Delivery Nasal Cannula Nasal Cannula O2 Flow Rate 2.0 2.0 07/28/16 07/28/16 07/28/16 13:45 14:44 14:50 Temp 95.2 96.3 95.2 96.3 Pulse 95 93 Resp 16 20 B/P 82/44 74/38 Pulse Ox 96 71 85 O2 Delivery Nasal Cannula Room Air O2 Flow Rate 2.0 Intake and Output 07/27/16 07/27/16 07/28/16 15:00 23:00 07:00 Intake Total 250 ml 1000 ml 800 ml Balance 250 ml 1000 ml 800 ml RAMYA NELSON MD Jul 28, 2016 15:25
[2016-07-29] MEDS: OXYCODONE IR 5 MG TABLET. PO PRN ×4 (02:28→20:45)
[2016-07-29 03:56] VITALS: BP 80/43
[2016-07-29 07:00] VITALS: BP 87/48
[2016-07-29 07:15] LABS: BASO % 1 % (0-3); EOS % 5 % (0-3); HEMATOCRIT 25.3 % (39.0-53.0); HEMOGLOBIN 8.2 g/dL (13.0-17.5); LYMPH # 0.5 x10^3/uL (1.0-4.8); LYMPH % 9 % (24-48); MEAN CORPUSCULAR HEMOGLOBIN 29 pg (25-35); MEAN CORPUSCULAR HGB CONC 33 g/dL (31-37); MEAN CORPUSCULAR VOLUME 89 fL (79-100); MONO % 11 % (0-9); NEUT % 75 % (31-73); PLATELET COUNT 261 x10^3/uL (140-400); RED BLOOD COUNT 2.84 x10^6/uL (4.30-5.70); RED CELL DISTRIBUTION WIDTH 16.9 % (11.5-14.5); WHITE BLOOD COUNT 5.4 x10^3/uL (4.0-11.0)
[2016-07-29] MEDS: IPRATRPIUM/ALBUTEROL 0.5/2.5MG 3 ML NEBU. NEB SCH ×4 (07:16→20:31)
[2016-07-29 07:32] LABS: CREATININE 1.3 mg/dL (0.7-1.3); GFR 55.6; POTASSIUM 4.4 mmol/L (3.5-5.1)
[2016-07-29] MEDS: POLYETHYLENE GLYCOL 3350 17 GM PACKET. PO SCH (08:04)
[2016-07-29 10:50] VITALS: BP 81/42
[2016-07-29] MEDS: ENOXAPARIN 40 MG/0.4 ML DISP.SYRIN. SQ SCH (13:09)
--- NOTE | 2016-07-29 14:00 | PDOC ---
PROGRESS NOTES Chief Complaint Chief Complaint sob 1. COPD 2. Arthritis, 3. HTN 4. Liver Disease, no details 5. ascites, possible 2/2 cirrohsis, maligancy cells was found as per [place] 6. anemia, normocytic 7. body and bone pain 8. hypotension, likely 2/2 liver dz, asymptomatic plan: 1. duoneb, albuterol 2. gi consulted, paracentesis 07/28 7L, Result pending 3. lower ext US neg for DVT, abd US done 4. PAIN CONTRol dvt [facility] for [facility], pt wants to be transferred. ALBUmin 25% 50g x1 07/28 bone scan to rule out bone mets tmr waiting to transfer TO [place] History of Present Illness History of Present Illness on 2L nc ,Baseline same sob better pt was just DCed from [place] 2 ds ago, for ascites ,as per pt, there as malignancy, but not sure the type paracentesis on 07/27 7L, abd much soft low BP WHOLE body pain Vitals Vitals Vital Signs Date Time Temp Pulse Resp B/P Pulse Ox O2 Delivery O2 Flow Rate FiO2 07/29/16 13:08 16 93 Nasal Cannula 2.0 07/29/16 10:50 97.1 95 81/42 97.1 Physical Exam General: Alert, Oriented X3, Cooperative Heart: Regular rate, Normal S1 Lungs: Crackles (bl mild) Abdomen: Normal bowel sounds, Soft, No tenderness, Other (moderate distended) Extremities: No clubbing, No cyanosis, Other (bl lower ext severe adema) Labs LABS Laboratory Tests Test 07/29/16 06:55 White Blood Count 5.4x10^3/uL (4.0-11.0) Red Blood Count 2.84x10^6/uL (4.30-5.70) Hemoglobin 8.2g/dL (13.0-17.5) Hematocrit 25.3% (39.0-53.0) Mean Corpuscular Volume 89fL (79-100) Mean Corpuscular Hemoglobin 29pg (25-35) Mean Corpuscular Hemoglobin Concent 33g/dL (31-37) Red Cell Distribution Width 16.9% (11.5-14.5) Platelet Count 261x10^3/uL (140-400) Neutrophils (%) (Auto) 75% (31-73) Lymphocytes (%) (Auto) 9% (24-48) Monocytes (%) (Auto) 11% (0-9) Eosinophils (%) (Auto) 5% (0-3) Basophils (%) (Auto) 1% (0-3) Neutrophils # (Auto) 4.1x10^3uL (1.8-7.7) Lymphocytes # (Auto) 0.5x10^3/uL (1.0-4.8) Monocytes # (Auto) 0.6x10^3/uL (0.0-1.1) Eosinophils # (Auto) 0.2x10^3/uL (0.0-0.7) Basophils # (Auto) 0.0x10^3/uL (0.0-0.2) Sodium Level 138mmol/L (136-145) Potassium Level 4.4mmol/L (3.5-5.1) Chloride Level 103mmol/L (98-107) Carbon Dioxide Level 29mmol/L (21-32) Anion Gap 6 (6-14) Blood Urea Nitrogen 31mg/dL (8-26) Creatinine 1.3mg/dL (0.7-1.3) Estimated GFR (Cockcroft-Gault) 55.6 Glucose Level 100mg/dL (70-99) Calcium Level 9.0mg/dL (8.5-10.1) Review of Systems Review of Systems no fever, chills, sob or chest pain Assessment and Plan Assessmemt and Plan Problems Medical Problems: (1) Abdominal pain Status: Acute (2) Dyspnea Status: Acute (3) Hypoxemia Status: Acute Problems: Comment Review of Relevant I have reviewed the following items rodrigo (where applicable) has been applied. Labs Laboratory Tests Test 07/29/16 06:55 White Blood Count 5.4x10^3/uL (4.0-11.0) Red Blood Count 2.84x10^6/uL (4.30-5.70) Hemoglobin 8.2g/dL (13.0-17.5) Hematocrit 25.3% (39.0-53.0) Mean Corpuscular Volume 89fL (79-100) Mean Corpuscular Hemoglobin 29pg (25-35) Mean Corpuscular Hemoglobin Concent 33g/dL (31-37) Red Cell Distribution Width 16.9% (11.5-14.5) Platelet Count 261x10^3/uL (140-400) Neutrophils (%) (Auto) 75% (31-73) Lymphocytes (%) (Auto) 9% (24-48) Monocytes (%) (Auto) 11% (0-9) Eosinophils (%) (Auto) 5% (0-3) Basophils (%) (Auto) 1% (0-3) Neutrophils # (Auto) 4.1x10^3uL (1.8-7.7) Lymphocytes # (Auto) 0.5x10^3/uL (1.0-4.8) Monocytes # (Auto) 0.6x10^3/uL (0.0-1.1) Eosinophils # (Auto) 0.2x10^3/uL (0.0-0.7) Basophils # (Auto) 0.0x10^3/uL (0.0-0.2) Sodium Level 138mmol/L (136-145) Potassium Level 4.4mmol/L (3.5-5.1) Chloride Level 103mmol/L (98-107) Carbon Dioxide Level 29mmol/L (21-32) Anion Gap 6 (6-14) Blood Urea Nitrogen 31mg/dL (8-26) Creatinine 1.3mg/dL (0.7-1.3) Estimated GFR (Cockcroft-Gault) 55.6 Glucose Level 100mg/dL (70-99) Calcium Level 9.0mg/dL (8.5-10.1) Laboratory Tests Test 07/29/16 06:55 White Blood Count 5.4x10^3/uL (4.0-11.0) Red Blood Count 2.84x10^6/uL (4.30-5.70) Hemoglobin 8.2g/dL (13.0-17.5) Hematocrit 25.3% (39.0-53.0) Mean Corpuscular Volume 89fL (79-100) Mean Corpuscular Hemoglobin 29pg (25-35) Mean Corpuscular Hemoglobin Concent 33g/dL (31-37) Red Cell Distribution Width 16.9% (11.5-14.5) Platelet Count 261x10^3/uL (140-400) Neutrophils (%) (Auto) 75% (31-73) Lymphocytes (%) (Auto) 9% (24-48) Monocytes (%) (Auto) 11% (0-9) Eosinophils (%) (Auto) 5% (0-3) Basophils (%) (Auto) 1% (0-3) Neutrophils # (Auto) 4.1x10^3uL (1.8-7.7) Lymphocytes # (Auto) 0.5x10^3/uL (1.0-4.8) Monocytes # (Auto) 0.6x10^3/uL (0.0-1.1) Eosinophils # (Auto) 0.2x10^3/uL (0.0-0.7) Basophils # (Auto) 0.0x10^3/uL (0.0-0.2) Sodium Level 138mmol/L (136-145) Potassium Level 4.4mmol/L (3.5-5.1) Chloride Level 103mmol/L (98-107) Carbon Dioxide Level 29mmol/L (21-32) Anion Gap 6 (6-14) Blood Urea Nitrogen 31mg/dL (8-26) Creatinine 1.3mg/dL (0.7-1.3) Estimated GFR (Cockcroft-Gault) 55.6 Glucose Level 100mg/dL (70-99) Calcium Level 9.0mg/dL (8.5-10.1) Medications Current Medications Ondansetron HCl (Zofran) 4 mg PRN Q8HRS PRN IV NAUSEA/VOMITING; Start 07/26/16 at 20:45; Stop 07/27/16 at 20:44; Status DC Acetaminophen (Tylenol) 650 mg PRN Q4HRS PRN PO FEVER; Start 07/26/16 at 20:45 ; Stop 07/27/16 at 20:44; Status DC Oxycodone HCl (Roxicodone) 15 mg PRN Q4HRS PRN PO SEVERE PAIN; Start 07/26/16 at 22:00; Stop 07/26/16 at 22:06; Status DC Polyethylene Glycol (miraLAX PACKET) 17 gm DAILY PO ; Start 07/27/16 at 09:00 Albuterol/ Ipratropium (Duoneb) 3 ml RTQID NEB Last administered on 07/29/16 11:34; Start 07/26/16 at 23:00 Oxycodone HCl (Roxicodone) 15 mg PRN Q4HRS PRN PO SEVERE PAIN Last administered on 07/29/16 13:08; Start 07/26/16 at 22:06 Albuterol Sulfate (Ventolin Neb Soln) 2.5 mg PRN Q4HRS PRN NEB SHORTNESS OF BREATH; Start 07/27/16 at 12:00 Non-Formulary Medication 1 puff PRN Q6HRS PRN INH SHORTNESS OF BREATH; Start at 12:00; Status UNV Oxycodone HCl (Roxicodone) 40 mg PRN Q6HRS PRN PO PAIN; Start 07/27/16 at 12:00 ; Stop 07/27/16 at 13:26; Status DC Acetaminophen (Tylenol) 650 mg PRN Q6HRS PRN PO MILD PAIN / TEMP; Start at 13:30 Ondansetron HCl (Zofran) 4 mg PRN Q6HRS PRN IV NAUSEA/VOMITING; Start 07/27/16 at 13:30 Enoxaparin Sodium (Lovenox 40mg Syringe) 40 mg Q24H SQ ; Start 07/27/16 at 14:00 Morphine Sulfate 2 mg 2 mg PRN Q4HRS PRN IV PAIN SEV Last administered on 12:15; Start 07/28/16 at 12:15 Albumin Human 100 ml @ 100 mls/hr 1X ONCE IV Last administered on 07/28/16 13:43; Start 07/28/16 at 13:00; Stop 07/28/16 at 13:59; Status DC Albumin Human (Albuminar) 100 ml @ 100 mls/hr 1X ONCE IV Last administered on 07/28/16 16:58; Start 07/28/16 at 15:30; Stop 07/28/16 at 16:29; Status DC Active Scripts Active Reported Advil (Ibuprofen) 200 Mg Tablet 400 Mg PO PRN PRN Proair Hfa Inhaler (Albuterol Sulfate) 8.5 Gm Hfa.aer.ad 1 Puff INH PRN Q6HRS PRN Albuterol Sulfate Neb Soln (Albuterol Sulfate) 2.5 Mg/3 Ml Vial.neb 1 Vial NEB PRN Q4HRS Oxycodone Hcl 10 Mg Tablet 40 Mg PO PRN Q4-6HRS PRN Vitals/I & O Vital Sign - Last 24 Hours 07/28/16 07/28/16 07/28/16 07/28/16 14:50 16:23 19:00 19:29 Temp 96.3 97.6 96.3 97.6 Pulse 93 93 Resp 20 16 B/P 74/38 73/47 Pulse Ox 85 95 94 O2 Delivery Room Air Nasal Cannula Nasal Cannula Nasal Cannula O2 Flow Rate 2.0 2.0 2.0 07/28/16 07/28/16 07/28/16 07/29/16 20:00 20:59 23:11 02:28 Temp 97.7 97.7 Pulse 71 Resp 12 B/P 78/44 Pulse Ox 91 O2 Delivery Nasal Cannula Nasal Cannula Nasal Cannula Nasal Cannula O2 Flow Rate 2.0 2.0 2.0 07/29/16 07/29/16 07/29/16 07/29/16 03:56 07:00 07:16 07:39 Temp 97.8 97.4 97.8 97.4 Pulse 93 88 Resp 16 16 16 B/P 80/43 87/48 Pulse Ox 97 95 95 95 O2 Delivery Nasal Cannula Nasal Cannula Nasal Cannula Nasal Cannula O2 Flow Rate 2.0 2.0 2.0 2.0 07/29/16 07/29/16 07/29/16 08:00 10:50 13:08 Temp 97.1 97.1 Pulse 95 Resp 16 16 B/P 81/42 Pulse Ox 93 93 O2 Delivery Nasal Cannula Nasal Cannula Nasal Cannula O2 Flow Rate 2.0 2.0 2.0 Intake and Output 07/28/16 07/28/16 07/29/16 15:00 23:00 07:00 Intake Total 700 ml 900 ml 595 ml Output Total 300 ml Balance 700 ml 900 ml 295 ml RAMYA NELSON MD Jul 29, 2016 14:00
[2016-07-29 15:31] VITALS: BP 87/46
[2016-07-29 19:00] VITALS: BP 90/48
[2016-07-29 22:22] VITALS: BP 88/49
[2016-07-30] MEDS: OXYCODONE IR 5 MG TABLET. PO PRN ×3 (00:40→20:16)
[2016-07-30] MEDS: MORPHINE SULFATE 2 MG/ML DISP.SYRIN. IV PRN (00:56)
[2016-07-30 02:48] VITALS: BP 95/58
[2016-07-30 04:23] LABS: BASO % 1 % (0-3); EOS % 5 % (0-3); HEMATOCRIT 24.7 % (39.0-53.0); HEMOGLOBIN 7.9 g/dL (13.0-17.5); LYMPH # 0.6 x10^3/uL (1.0-4.8); LYMPH % 11 % (24-48); MEAN CORPUSCULAR HEMOGLOBIN 29 pg (25-35); MEAN CORPUSCULAR HGB CONC 32 g/dL (31-37); MEAN CORPUSCULAR VOLUME 90 fL (79-100); MONO % 11 % (0-9); NEUT % 72 % (31-73); PLATELET COUNT 241 x10^3/uL (140-400); RED BLOOD COUNT 2.76 x10^6/uL (4.30-5.70); RED CELL DISTRIBUTION WIDTH 17.1 % (11.5-14.5); WHITE BLOOD COUNT 5.8 x10^3/uL (4.0-11.0)
[2016-07-30 04:36] LABS: CALCIUM 8.9 mg/dL (8.5-10.1); CREATININE 1.1 mg/dL (0.7-1.3); GFR 67.4; POTASSIUM 4.7 mmol/L (3.5-5.1)
[2016-07-30] MEDS: IPRATRPIUM/ALBUTEROL 0.5/2.5MG 3 ML NEBU. NEB SCH ×4 (07:11→18:23)
[2016-07-30 07:58] VITALS: BP 94/53
[2016-07-30] MEDS: POLYETHYLENE GLYCOL 3350 17 GM PACKET. PO SCH (08:22)
--- NOTE | 2016-07-30 10:22 | PDOC ---
PROGRESS NOTES Chief Complaint Chief Complaint sob 1. COPD 2. Arthritis, 3. HTN 4. Liver Disease, no details 5. ascites, possible 2/2 cirrhosis, malignancy cells [facility] [place] [facility] [place] [facility] 6. anemia, normocytic 7. body and bone pain 8. hypotension, likely 2/2 liver dz, asymptomatic Plan: 1. DuoNeb, albuterol 2. GI consulted, paracentesis 07/28 7L, Result pending 3. lower ext US neg for DVT, abd US done, bone scan negative 4. PAIN Conrol 5. Pt wants to go to [place] History of Present Illness History of Present Illness no fever pain 5/10, better, with morphine Vitals Vitals Vital Signs Date Time Temp Pulse Resp B/P Pulse Ox O2 Delivery O2 Flow Rate FiO2 07/30/16 09:39 18 96 Nasal Cannula 2.0 07/30/16 07:58 97.7 102 94/53 97.7 Physical Exam General: Alert, Oriented X3, Cooperative Heart: Regular rate, Normal S1 Lungs: Clear, Crackles Abdomen: Normal bowel sounds, Soft, No tenderness, Other (moderate distended) Extremities: No clubbing, No cyanosis, Other (bl lower ext severe adema) Labs LABS Laboratory Tests Test 07/30/16 03:40 White Blood Count 5.8x10^3/uL (4.0-11.0) Red Blood Count 2.76x10^6/uL (4.30-5.70) Hemoglobin 7.9g/dL (13.0-17.5) Hematocrit 24.7% (39.0-53.0) Mean Corpuscular Volume 90fL (79-100) Mean Corpuscular Hemoglobin 29pg (25-35) Mean Corpuscular Hemoglobin Concent 32g/dL (31-37) Red Cell Distribution Width 17.1% (11.5-14.5) Platelet Count 241x10^3/uL (140-400) Neutrophils (%) (Auto) 72% (31-73) Lymphocytes (%) (Auto) 11% (24-48) Monocytes (%) (Auto) 11% (0-9) Eosinophils (%) (Auto) 5% (0-3) Basophils (%) (Auto) 1% (0-3) Neutrophils # (Auto) 4.2x10^3uL (1.8-7.7) Lymphocytes # (Auto) 0.6x10^3/uL (1.0-4.8) Monocytes # (Auto) 0.6x10^3/uL (0.0-1.1) Eosinophils # (Auto) 0.3x10^3/uL (0.0-0.7) Basophils # (Auto) 0.0x10^3/uL (0.0-0.2) Sodium Level 135mmol/L (136-145) Potassium Level 4.7mmol/L (3.5-5.1) Chloride Level 103mmol/L (98-107) Carbon Dioxide Level 22mmol/L (21-32) Anion Gap 10 (6-14) Blood Urea Nitrogen 27mg/dL (8-26) Creatinine 1.1mg/dL (0.7-1.3) Estimated GFR (Cockcroft-Gault) 67.4 Glucose Level 105mg/dL (70-99) Calcium Level 8.9mg/dL (8.5-10.1) Assessment and Plan Assessmemt and Plan Problems Medical Problems: (1) Abdominal pain Status: Acute (2) Dyspnea Status: Acute (3) Hypoxemia Status: Acute Problems: Comment Review of Relevant I have reviewed the following items rodrigo (where applicable) has been applied. Labs Laboratory Tests Test 07/29/16 06:55 07/30/16 03:40 White Blood Count 5.4x10^3/uL (4.0-11.0) 5.8x10^3/uL (4.0-11.0) Red Blood Count 2.84x10^6/uL (4.30-5.70) 2.76x10^6/uL (4.30-5.70) Hemoglobin 8.2g/dL (13.0-17.5) 7.9g/dL (13.0-17.5) Hematocrit 25.3% (39.0-53.0) 24.7% (39.0-53.0) Mean Corpuscular Volume 89fL (79-100) 90fL (79-100) Mean Corpuscular Hemoglobin 29pg (25-35) 29pg (25-35) Mean Corpuscular Hemoglobin Concent 33g/dL (31-37) 32g/dL (31-37) Red Cell Distribution Width 16.9% (11.5-14.5) 17.1% (11.5-14.5) Platelet Count 261x10^3/uL (140-400) 241x10^3/uL (140-400) Neutrophils (%) (Auto) 75% (31-73) 72% (31-73) Lymphocytes (%) (Auto) 9% (24-48) 11% (24-48) Monocytes (%) (Auto) 11% (0-9) 11% (0-9) Eosinophils (%) (Auto) 5% (0-3) 5% (0-3) Basophils (%) (Auto) 1% (0-3) 1% (0-3) Neutrophils # (Auto) 4.1x10^3uL (1.8-7.7) 4.2x10^3uL (1.8-7.7) Lymphocytes # (Auto) 0.5x10^3/uL (1.0-4.8) 0.6x10^3/uL (1.0-4.8) Monocytes # (Auto) 0.6x10^3/uL (0.0-1.1) 0.6x10^3/uL (0.0-1.1) Eosinophils # (Auto) 0.2x10^3/uL (0.0-0.7) 0.3x10^3/uL (0.0-0.7) Basophils # (Auto) 0.0x10^3/uL (0.0-0.2) 0.0x10^3/uL (0.0-0.2) Sodium Level 138mmol/L (136-145) 135mmol/L (136-145) Potassium Level 4.4mmol/L (3.5-5.1) 4.7mmol/L (3.5-5.1) Chloride Level 103mmol/L (98-107) 103mmol/L (98-107) Carbon Dioxide Level 29mmol/L (21-32) 22mmol/L (21-32) Anion Gap 6 (6-14) 10 (6-14) Blood Urea Nitrogen 31mg/dL (8-26) 27mg/dL (8-26) Creatinine 1.3mg/dL (0.7-1.3) 1.1mg/dL (0.7-1.3) Estimated GFR (Cockcroft-Gault) 55.6 67.4 Glucose Level 100mg/dL (70-99) 105mg/dL (70-99) Calcium Level 9.0mg/dL (8.5-10.1) 8.9mg/dL (8.5-10.1) Laboratory Tests Test 07/30/16 03:40 White Blood Count 5.8x10^3/uL (4.0-11.0) Red Blood Count 2.76x10^6/uL (4.30-5.70) Hemoglobin 7.9g/dL (13.0-17.5) Hematocrit 24.7% (39.0-53.0) Mean Corpuscular Volume 90fL (79-100) Mean Corpuscular Hemoglobin 29pg (25-35) Mean Corpuscular Hemoglobin Concent 32g/dL (31-37) Red Cell Distribution Width 17.1% (11.5-14.5) Platelet Count 241x10^3/uL (140-400) Neutrophils (%) (Auto) 72% (31-73) Lymphocytes (%) (Auto) 11% (24-48) Monocytes (%) (Auto) 11% (0-9) Eosinophils (%) (Auto) 5% (0-3) Basophils (%) (Auto) 1% (0-3) Neutrophils # (Auto) 4.2x10^3uL (1.8-7.7) Lymphocytes # (Auto) 0.6x10^3/uL (1.0-4.8) Monocytes # (Auto) 0.6x10^3/uL (0.0-1.1) Eosinophils # (Auto) 0.3x10^3/uL (0.0-0.7) Basophils # (Auto) 0.0x10^3/uL (0.0-0.2) Sodium Level 135mmol/L (136-145) Potassium Level 4.7mmol/L (3.5-5.1) Chloride Level 103mmol/L (98-107) Carbon Dioxide Level 22mmol/L (21-32) Anion Gap 10 (6-14) Blood Urea Nitrogen 27mg/dL (8-26) Creatinine 1.1mg/dL (0.7-1.3) Estimated GFR (Cockcroft-Gault) 67.4 Glucose Level 105mg/dL (70-99) Calcium Level 8.9mg/dL (8.5-10.1) Medications Current Medications Ondansetron HCl (Zofran) 4 mg PRN Q8HRS PRN IV NAUSEA/VOMITING; Start 07/26/16 at 20:45; Stop 07/27/16 at 20:44; Status DC Acetaminophen (Tylenol) 650 mg PRN Q4HRS PRN PO FEVER; Start 07/26/16 at 20:45 ; Stop 07/27/16 at 20:44; Status DC Oxycodone HCl (Roxicodone) 15 mg PRN Q4HRS PRN PO SEVERE PAIN; Start 07/26/16 at 22:00; Stop 07/26/16 at 22:06; Status DC Polyethylene Glycol (miraLAX PACKET) 17 gm DAILY PO ; Start 07/27/16 at 09:00 Albuterol/ Ipratropium (Duoneb) 3 ml RTQID NEB Last administered on 07/30/16 07:11; Start 07/26/16 at 23:00 Oxycodone HCl (Roxicodone) 15 mg PRN Q4HRS PRN PO SEVERE PAIN Last administered on 07/30/16 08:22; Start 07/26/16 at 22:06 Albuterol Sulfate (Ventolin Neb Soln) 2.5 mg PRN Q4HRS PRN NEB SHORTNESS OF BREATH; Start 07/27/16 at 12:00 Non-Formulary Medication 1 puff PRN Q6HRS PRN INH SHORTNESS OF BREATH; Start at 12:00; Status UNV Oxycodone HCl (Roxicodone) 40 mg PRN Q6HRS PRN PO PAIN; Start 07/27/16 at 12:00 ; Stop 07/27/16 at 13:26; Status DC Acetaminophen (Tylenol) 650 mg PRN Q6HRS PRN PO MILD PAIN / TEMP; Start at 13:30 Ondansetron HCl (Zofran) 4 mg PRN Q6HRS PRN IV NAUSEA/VOMITING; Start 07/27/16 at 13:30 Enoxaparin Sodium (Lovenox 40mg Syringe) 40 mg Q24H SQ ; Start 07/27/16 at 14:00 Morphine Sulfate 2 mg 2 mg PRN Q4HRS PRN IV PAIN SEV Last administered on 00:56; Start 07/28/16 at 12:15 Albumin Human 100 ml @ 100 mls/hr 1X ONCE IV Last administered on 07/28/16 13:43; Start 07/28/16 at 13:00; Stop 07/28/16 at 13:59; Status DC Albumin Human (Albuminar) 100 ml @ 100 mls/hr 1X ONCE IV Last administered on 07/28/16 16:58; Start 07/28/16 at 15:30; Stop 07/28/16 at 16:29; Status DC Active Scripts Active Reported Advil (Ibuprofen) 200 Mg Tablet 400 Mg PO PRN PRN Proair Hfa Inhaler (Albuterol Sulfate) 8.5 Gm Hfa.aer.ad 1 Puff INH PRN Q6HRS PRN Albuterol Sulfate Neb Soln (Albuterol Sulfate) 2.5 Mg/3 Ml Vial.neb 1 Vial NEB PRN Q4HRS Oxycodone Hcl 10 Mg Tablet 40 Mg PO PRN Q4-6HRS PRN Vitals/I & O Vital Sign - Last 24 Hours 07/29/16 07/29/16 07/29/16 07/29/16 10:50 13:08 15:31 16:04 Temp 97.1 97.1 97.1 97.1 Pulse 95 85 Resp 16 16 16 B/P 81/42 87/46 Pulse Ox 93 93 91 93 O2 Delivery Nasal Cannula Nasal Cannula Nasal Cannula Nasal Cannula O2 Flow Rate 2.0 2.0 2.0 2.0 07/29/16 07/29/16 07/29/16 07/29/16 19:00 20:00 20:33 20:45 Temp 98.1 98.1 Pulse 91 Resp 16 B/P 90/48 Pulse Ox 97 96 O2 Delivery Nasal Cannula Nasal Cannula Nasal Cannula Nasal Cannula O2 Flow Rate 2.0 2.0 2.0 2.0 07/29/16 07/30/16 07/30/16 07/30/16 22:22 00:40 00:56 01:26 Temp 98.1 98.1 Pulse 99 Resp 16 B/P 88/49 Pulse Ox 92 O2 Delivery Nasal Cannula Nasal Cannula Nasal Cannula Nasal Cannula O2 Flow Rate 2.0 07/30/16 07/30/16 07/30/16 07/30/16 02:48 07:11 07:58 08:00 Temp 98.3 97.7 98.3 97.7 Pulse 89 102 Resp 16 16 B/P 95/58 94/53 Pulse Ox 94 88 96 O2 Delivery Nasal Cannula Room Air Nasal Cannula Nasal Cannula O2 Flow Rate 2.0 2.0 2.0 07/30/16 07/30/16 08:22 09:39 Resp 18 18 Pulse Ox 96 96 O2 Delivery Nasal Cannula Nasal Cannula O2 Flow Rate 2.0 2.0 Intake and Output 07/29/16 07/29/16 07/30/16 15:00 23:00 07:00 Intake Total 600 ml 1100 ml Output Total 1610 ml Balance 600 ml -510 ml NURIS ONEIL MD Jul 30, 2016 10:21
[2016-07-30 11:44] VITALS: BP 83/45
--- NOTE | 2016-07-30 13:44 | PDOC ---
G I PROGRESS NOTE Subjective No specific complaints. Would have liked to have been tapped "dry". Objective Bloody fluid on paracentesis. Physical Exam Lungs clear. RRR Abdomen soft, some ascites, but less than Saturday by far. Review of Relevant I have reviewed the following items rodrigo (where applicable) has been applied. Labs Laboratory Tests Test 07/29/16 06:55 07/30/16 03:40 White Blood Count 5.4x10^3/uL (4.0-11.0) 5.8x10^3/uL (4.0-11.0) Red Blood Count 2.84x10^6/uL (4.30-5.70) 2.76x10^6/uL (4.30-5.70) Hemoglobin 8.2g/dL (13.0-17.5) 7.9g/dL (13.0-17.5) Hematocrit 25.3% (39.0-53.0) 24.7% (39.0-53.0) Mean Corpuscular Volume 89fL (79-100) 90fL (79-100) Mean Corpuscular Hemoglobin 29pg (25-35) 29pg (25-35) Mean Corpuscular Hemoglobin Concent 33g/dL (31-37) 32g/dL (31-37) Red Cell Distribution Width 16.9% (11.5-14.5) 17.1% (11.5-14.5) Platelet Count 261x10^3/uL (140-400) 241x10^3/uL (140-400) Neutrophils (%) (Auto) 75% (31-73) 72% (31-73) Lymphocytes (%) (Auto) 9% (24-48) 11% (24-48) Monocytes (%) (Auto) 11% (0-9) 11% (0-9) Eosinophils (%) (Auto) 5% (0-3) 5% (0-3) Basophils (%) (Auto) 1% (0-3) 1% (0-3) Neutrophils # (Auto) 4.1x10^3uL (1.8-7.7) 4.2x10^3uL (1.8-7.7) Lymphocytes # (Auto) 0.5x10^3/uL (1.0-4.8) 0.6x10^3/uL (1.0-4.8) Monocytes # (Auto) 0.6x10^3/uL (0.0-1.1) 0.6x10^3/uL (0.0-1.1) Eosinophils # (Auto) 0.2x10^3/uL (0.0-0.7) 0.3x10^3/uL (0.0-0.7) Basophils # (Auto) 0.0x10^3/uL (0.0-0.2) 0.0x10^3/uL (0.0-0.2) Sodium Level 138mmol/L (136-145) 135mmol/L (136-145) Potassium Level 4.4mmol/L (3.5-5.1) 4.7mmol/L (3.5-5.1) Chloride Level 103mmol/L (98-107) 103mmol/L (98-107) Carbon Dioxide Level 29mmol/L (21-32) 22mmol/L (21-32) Anion Gap 6 (6-14) 10 (6-14) Blood Urea Nitrogen 31mg/dL (8-26) 27mg/dL (8-26) Creatinine 1.3mg/dL (0.7-1.3) 1.1mg/dL (0.7-1.3) Estimated GFR (Cockcroft-Gault) 55.6 67.4 Glucose Level 100mg/dL (70-99) 105mg/dL (70-99) Calcium Level 9.0mg/dL (8.5-10.1) 8.9mg/dL (8.5-10.1) Laboratory Tests Test 07/30/16 03:40 White Blood Count 5.8x10^3/uL (4.0-11.0) Red Blood Count 2.76x10^6/uL (4.30-5.70) Hemoglobin 7.9g/dL (13.0-17.5) Hematocrit 24.7% (39.0-53.0) Mean Corpuscular Volume 90fL (79-100) Mean Corpuscular Hemoglobin 29pg (25-35) Mean Corpuscular Hemoglobin Concent 32g/dL (31-37) Red Cell Distribution Width 17.1% (11.5-14.5) Platelet Count 241x10^3/uL (140-400) Neutrophils (%) (Auto) 72% (31-73) Lymphocytes (%) (Auto) 11% (24-48) Monocytes (%) (Auto) 11% (0-9) Eosinophils (%) (Auto) 5% (0-3) Basophils (%) (Auto) 1% (0-3) Neutrophils # (Auto) 4.2x10^3uL (1.8-7.7) Lymphocytes # (Auto) 0.6x10^3/uL (1.0-4.8) Monocytes # (Auto) 0.6x10^3/uL (0.0-1.1) Eosinophils # (Auto) 0.3x10^3/uL (0.0-0.7) Basophils # (Auto) 0.0x10^3/uL (0.0-0.2) Sodium Level 135mmol/L (136-145) Potassium Level 4.7mmol/L (3.5-5.1) Chloride Level 103mmol/L (98-107) Carbon Dioxide Level 22mmol/L (21-32) Anion Gap 10 (6-14) Blood Urea Nitrogen 27mg/dL (8-26) Creatinine 1.1mg/dL (0.7-1.3) Estimated GFR (Cockcroft-Gault) 67.4 Glucose Level 105mg/dL (70-99) Calcium Level 8.9mg/dL (8.5-10.1) Cytology on fluid pending. Medications Current Medications Ondansetron HCl (Zofran) 4 mg PRN Q8HRS PRN IV NAUSEA/VOMITING; Start 07/26/16 at 20:45; Stop 07/27/16 at 20:44; Status DC Acetaminophen (Tylenol) 650 mg PRN Q4HRS PRN PO FEVER; Start 07/26/16 at 20:45 ; Stop 07/27/16 at 20:44; Status DC Oxycodone HCl (Roxicodone) 15 mg PRN Q4HRS PRN PO SEVERE PAIN; Start 07/26/16 at 22:00; Stop 07/26/16 at 22:06; Status DC Polyethylene Glycol (miraLAX PACKET) 17 gm DAILY PO ; Start 07/27/16 at 09:00 Albuterol/ Ipratropium (Duoneb) 3 ml RTQID NEB Last administered on 07/30/16 07:11; Start 07/26/16 at 23:00 Oxycodone HCl (Roxicodone) 15 mg PRN Q4HRS PRN PO SEVERE PAIN Last administered on 07/30/16 08:22; Start 07/26/16 at 22:06 Albuterol Sulfate (Ventolin Neb Soln) 2.5 mg PRN Q4HRS PRN NEB SHORTNESS OF BREATH; Start 07/27/16 at 12:00 Non-Formulary Medication 1 puff PRN Q6HRS PRN INH SHORTNESS OF BREATH; Start at 12:00; Status UNV Oxycodone HCl (Roxicodone) 40 mg PRN Q6HRS PRN PO PAIN; Start 07/27/16 at 12:00 ; Stop 07/27/16 at 13:26; Status DC Acetaminophen (Tylenol) 650 mg PRN Q6HRS PRN PO MILD PAIN / TEMP; Start at 13:30 Ondansetron HCl (Zofran) 4 mg PRN Q6HRS PRN IV NAUSEA/VOMITING; Start 07/27/16 at 13:30 Enoxaparin Sodium (Lovenox 40mg Syringe) 40 mg Q24H SQ ; Start 07/27/16 at 14:00 Morphine Sulfate 2 mg 2 mg PRN Q4HRS PRN IV PAIN SEV Last administered on 00:56; Start 07/28/16 at 12:15 Albumin Human 100 ml @ 100 mls/hr 1X ONCE IV Last administered on 07/28/16 13:43; Start 07/28/16 at 13:00; Stop 07/28/16 at 13:59; Status DC Albumin Human (Albuminar) 100 ml @ 100 mls/hr 1X ONCE IV Last administered on 07/28/16 16:58; Start 07/28/16 at 15:30; Stop 07/28/16 at 16:29; Status DC Active Scripts Active Reported Advil (Ibuprofen) 200 Mg Tablet 400 Mg PO PRN PRN Proair Hfa Inhaler (Albuterol Sulfate) 8.5 Gm Hfa.aer.ad 1 Puff INH PRN Q6HRS PRN Albuterol Sulfate Neb Soln (Albuterol Sulfate) 2.5 Mg/3 Ml Vial.neb 1 Vial NEB PRN Q4HRS Oxycodone Hcl 10 Mg Tablet 40 Mg PO PRN Q4-6HRS PRN Vitals/I & O Vital Sign - Last 24 Hours 07/29/16 07/29/16 07/29/16 07/29/16 15:31 16:04 19:00 20:00 Temp 97.1 98.1 97.1 98.1 Pulse 85 91 Resp 16 16 B/P 87/46 90/48 Pulse Ox 91 93 97 O2 Delivery Nasal Cannula Nasal Cannula Nasal Cannula Nasal Cannula O2 Flow Rate 2.0 2.0 2.0 2.0 07/29/16 07/29/16 07/29/16 07/30/16 20:33 20:45 22:22 00:40 Temp 98.1 98.1 Pulse 99 Resp 16 B/P 88/49 Pulse Ox 96 92 O2 Delivery Nasal Cannula Nasal Cannula Nasal Cannula Nasal Cannula O2 Flow Rate 2.0 2.0 2.0 07/30/16 07/30/16 07/30/16 07/30/16 00:56 01:26 02:48 07:11 Temp 98.3 98.3 Pulse 89 Resp 16 B/P 95/58 Pulse Ox 94 88 O2 Delivery Nasal Cannula Nasal Cannula Nasal Cannula Room Air O2 Flow Rate 2.0 07/30/16 07/30/16 07/30/16 07/30/16 07:58 08:00 08:22 09:39 Temp 97.7 97.7 Pulse 102 Resp 16 18 18 B/P 94/53 Pulse Ox 96 96 96 O2 Delivery Nasal Cannula Nasal Cannula Nasal Cannula Nasal Cannula O2 Flow Rate 2.0 2.0 2.0 2.0 07/30/16 11:44 Temp 97.9 97.9 Pulse 96 Resp 16 B/P 83/45 Pulse Ox 94 O2 Delivery Nasal Cannula O2 Flow Rate 2.0 Intake and Output 07/29/16 07/29/16 07/30/16 15:00 23:00 07:00 Intake Total 600 ml 1100 ml Output Total 1610 ml Balance 600 ml -510 ml Problem List Problems Medical Problems: (1) Abdominal pain Status: Acute (2) Dyspnea Status: Acute (3) Hypoxemia Status: Acute Assessment Ascites, suspected from malignancy. Plan of Care: Continue current Tx, Mgmt Plan of Care Note Await cytology. Continue efforts to transfer to [facility] per patient's wishes. DARLENE FRANK MD Jul 30, 2016 13:44
[2016-07-30] MEDS: ENOXAPARIN 40 MG/0.4 ML DISP.SYRIN. SQ SCH (13:46)
[2016-07-30 15:00] VITALS: BP 89/45
--- NOTE | 2016-07-30 15:04 | RAD ---
Radionuclide bone scan, 07/30/2016: History: Weight loss, body pain, possible metastatic disease Whole body imaging was performed following IV injection of 26.0 mCi of technetium 99m MDP. No previous bone scan is available at this time for correlative purposes. The following findings are delineated: 1. Mildly increased activity at the knees, ankles, shoulders and left wrist is probably on an arthritic basis. 2. No significant abnormal spinal, pelvic, skull or rib uptake is seen. 3. Normal activity is present in both kidneys and the bladder. IMPRESSION: No bone scan findings to suggest osseous metastatic disease.
[2016-07-30 19:00] VITALS: BP 76/42
[2016-07-30 23:00] VITALS: BP 76/47
[2016-07-31] MEDS: OXYCODONE IR 5 MG TABLET. PO PRN ×3 (01:45→20:31)
[2016-07-31 03:00] VITALS: BP 83/50
[2016-07-31 07:36] VITALS: BP 100/58
[2016-07-31] MEDS: IPRATRPIUM/ALBUTEROL 0.5/2.5MG 3 ML NEBU. NEB SCH ×4 (08:17→19:28)
[2016-07-31] MEDS: POLYETHYLENE GLYCOL 3350 17 GM PACKET. PO SCH (09:00)
--- NOTE | 2016-07-31 09:35 | PDOC ---
Subjective: Subjective: Abd pain/swelling, planning to try to eat breakfast. Fills like abd "filled back up" again. Objective: Objective: Per RN - [facility]. Not c/o too much of abd pain. Stooling. Vital Signs: Vital Signs Date Time Temp Pulse Resp B/P Pulse Ox O2 Delivery O2 Flow Rate FiO2 07/31/16 08:55 18 98 Nasal Cannula 2.0 07/31/16 07:36 98.4 98 100/58 98.4 PE: GEN: NAD, up to chair, cooperative LUNGS: nasal cannula, decreased anteriorly HEART: RRR ABD: distended/tight, BS+ NEURO/PSYCH: A & O 3 A/P: Ascites, cancer of unknown origin -recent paracentesis x 2 at [place] - malignant fluid, repeated here 07/28 (700cc bloody fluid) -had imaging at [place] which was apparently unrevealing for source, bone scan here also unrevealing Abd pain, weight loss, decreased appetite BLE edema, SOA - stable -- Awaiting transfer to [place]. Will review w/ Dr. Parkinson re: repeat paracentesis. JER CUMMINGS Jul 31, 2016 09:35
--- NOTE | 2016-07-31 09:56 | PDOC ---
PROGRESS NOTES Chief Complaint Chief Complaint sob 1. COPD 2. Arthritis, 3. HTN 4. Liver Disease, unclear etiology 5. ascites, possible 2/2 cirrhosis, malignancy cells was found as per [facility] 6. anemia, normocytic 7. body and bone pain 8. mild hypotension. Plan: 1. DuoNeb, albuterol 2. GI consulted, paracentesis 07/28 7L, Result pending, cytology and cell count pending. 3. lower ext US neg for DVT, abd US done, bone scan negative 4. PAIN Conrol 5. Pt wants to go to [place], no beds available, possible DC to SNU, and then pt can follow up with [place] and resume his care, History of Present Illness History of Present Illness no fever pain 5/10, better, with morphine Vitals Vitals Vital Signs Date Time Temp Pulse Resp B/P Pulse Ox O2 Delivery O2 Flow Rate FiO2 07/31/16 08:55 18 98 Nasal Cannula 2.0 07/31/16 07:36 98.4 98 100/58 98.4 Physical Exam General: Alert, Oriented X3, Cooperative Heart: Regular rate, Normal S1 Lungs: Clear, Crackles Abdomen: Normal bowel sounds, Soft, No tenderness, Other (moderate distended) Extremities: No clubbing, No cyanosis, Other (bl lower ext severe adema) Assessment and Plan Assessmemt and Plan Problems Medical Problems: (1) Abdominal pain Status: Acute (2) Dyspnea Status: Acute (3) Hypoxemia Status: Acute Problems: Comment Review of Relevant I have reviewed the following items rodrigo (where applicable) has been applied. Labs Laboratory Tests Test 07/30/16 03:40 White Blood Count 5.8x10^3/uL (4.0-11.0) Red Blood Count 2.76x10^6/uL (4.30-5.70) Hemoglobin 7.9g/dL (13.0-17.5) Hematocrit 24.7% (39.0-53.0) Mean Corpuscular Volume 90fL (79-100) Mean Corpuscular Hemoglobin 29pg (25-35) Mean Corpuscular Hemoglobin Concent 32g/dL (31-37) Red Cell Distribution Width 17.1% (11.5-14.5) Platelet Count 241x10^3/uL (140-400) Neutrophils (%) (Auto) 72% (31-73) Lymphocytes (%) (Auto) 11% (24-48) Monocytes (%) (Auto) 11% (0-9) Eosinophils (%) (Auto) 5% (0-3) Basophils (%) (Auto) 1% (0-3) Neutrophils # (Auto) 4.2x10^3uL (1.8-7.7) Lymphocytes # (Auto) 0.6x10^3/uL (1.0-4.8) Monocytes # (Auto) 0.6x10^3/uL (0.0-1.1) Eosinophils # (Auto) 0.3x10^3/uL (0.0-0.7) Basophils # (Auto) 0.0x10^3/uL (0.0-0.2) Sodium Level 135mmol/L (136-145) Potassium Level 4.7mmol/L (3.5-5.1) Chloride Level 103mmol/L (98-107) Carbon Dioxide Level 22mmol/L (21-32) Anion Gap 10 (6-14) Blood Urea Nitrogen 27mg/dL (8-26) Creatinine 1.1mg/dL (0.7-1.3) Estimated GFR (Cockcroft-Gault) 67.4 Glucose Level 105mg/dL (70-99) Calcium Level 8.9mg/dL (8.5-10.1) Medications Current Medications Ondansetron HCl (Zofran) 4 mg PRN Q8HRS PRN IV NAUSEA/VOMITING; Start 07/26/16 at 20:45; Stop 07/27/16 at 20:44; Status DC Acetaminophen (Tylenol) 650 mg PRN Q4HRS PRN PO FEVER; Start 07/26/16 at 20:45 ; Stop 07/27/16 at 20:44; Status DC Oxycodone HCl (Roxicodone) 15 mg PRN Q4HRS PRN PO SEVERE PAIN; Start 07/26/16 at 22:00; Stop 07/26/16 at 22:06; Status DC Polyethylene Glycol (miraLAX PACKET) 17 gm DAILY PO ; Start 07/27/16 at 09:00 Albuterol/ Ipratropium (Duoneb) 3 ml RTQID NEB Last administered on 07/31/16 08:17; Start 07/26/16 at 23:00 Oxycodone HCl (Roxicodone) 15 mg PRN Q4HRS PRN PO SEVERE PAIN Last administered on 07/31/16 08:55; Start 07/26/16 at 22:06 Albuterol Sulfate (Ventolin Neb Soln) 2.5 mg PRN Q4HRS PRN NEB SHORTNESS OF BREATH; Start 07/27/16 at 12:00 Non-Formulary Medication 1 puff PRN Q6HRS PRN INH SHORTNESS OF BREATH; Start at 12:00; Status UNV Oxycodone HCl (Roxicodone) 40 mg PRN Q6HRS PRN PO PAIN; Start 07/27/16 at 12:00 ; Stop 07/27/16 at 13:26; Status DC Acetaminophen (Tylenol) 650 mg PRN Q6HRS PRN PO MILD PAIN / TEMP; Start at 13:30 Ondansetron HCl (Zofran) 4 mg PRN Q6HRS PRN IV NAUSEA/VOMITING; Start 07/27/16 at 13:30 Enoxaparin Sodium (Lovenox 40mg Syringe) 40 mg Q24H SQ ; Start 07/27/16 at 14:00 Morphine Sulfate 2 mg 2 mg PRN Q4HRS PRN IV PAIN SEV Last administered on 00:56; Start 07/28/16 at 12:15 Albumin Human 100 ml @ 100 mls/hr 1X ONCE IV Last administered on 07/28/16 13:43; Start 07/28/16 at 13:00; Stop 07/28/16 at 13:59; Status DC Albumin Human (Albuminar) 100 ml @ 100 mls/hr 1X ONCE IV Last administered on 07/28/16 16:58; Start 07/28/16 at 15:30; Stop 07/28/16 at 16:29; Status DC Active Scripts Active Reported Advil (Ibuprofen) 200 Mg Tablet 400 Mg PO PRN PRN Proair Hfa Inhaler (Albuterol Sulfate) 8.5 Gm Hfa.aer.ad 1 Puff INH PRN Q6HRS PRN Albuterol Sulfate Neb Soln (Albuterol Sulfate) 2.5 Mg/3 Ml Vial.neb 1 Vial NEB PRN Q4HRS Oxycodone Hcl 10 Mg Tablet 40 Mg PO PRN Q4-6HRS PRN Vitals/I & O Vital Sign - Last 24 Hours 07/30/16 07/30/16 07/30/16 07/30/16 11:44 15:00 15:42 15:42 Temp 97.9 96.4 97.9 96.4 Pulse 96 42 Resp 16 18 B/P 83/45 89/45 Pulse Ox 94 90 88 95 O2 Delivery Nasal Cannula Nasal Cannula Room Air Nasal Cannula O2 Flow Rate 2.0 2.0 2.0 07/30/16 07/30/16 07/30/16 07/30/16 18:25 19:00 20:00 20:16 Pulse 98 Resp 21 18 B/P 76/42 Pulse Ox 96 96 O2 Delivery Nasal Cannula Nasal Cannula Nasal Cannula O2 Flow Rate 2.0 2.0 2.0 07/30/16 07/31/16 07/31/16 07/31/16 23:00 01:45 03:00 07:36 Temp 96.6 97.7 98.4 96.6 97.7 98.4 Pulse 94 100 98 Resp 22 20 16 B/P 76/47 83/50 100/58 Pulse Ox 95 94 90 O2 Delivery Nasal Cannula Nasal Cannula Room Air O2 Flow Rate 2.0 2.0 07/31/16 07/31/16 07/31/16 08:00 08:19 08:55 Resp 18 Pulse Ox 98 98 O2 Delivery Nasal Cannula Nasal Cannula Nasal Cannula O2 Flow Rate 2.0 2.0 2.0 Intake and Output 07/30/16 07/30/16 07/31/16 15:00 23:00 07:00 Intake Total 950 ml Balance 950 ml NURIS ONEIL MD Jul 31, 2016 09:56
[2016-07-31 11:00] VITALS: BP 90/53
[2016-07-31] MEDS: ENOXAPARIN 40 MG/0.4 ML DISP.SYRIN. SQ SCH (14:00)
[2016-07-31 15:30] VITALS: BP 91/56
[2016-07-31 19:00] VITALS: BP 94/50
[2016-07-31] MEDS ORDERED: FAMOTIDINE 20 MG TABLET. PO ONE (20:00)
[2016-07-31 23:00] VITALS: BP 74/46
[2016-08-01] VITALS (11 sets, daily range): BP systolic 73–162; BP diastolic 34–108
[2016-08-01] MEDS: OXYCODONE IR 5 MG TABLET. PO PRN ×3 (03:04→21:05)
[2016-08-01] MEDS: IPRATRPIUM/ALBUTEROL 0.5/2.5MG 3 ML NEBU. NEB SCH ×4 (07:34→20:02)
[2016-08-01] MEDS: POLYETHYLENE GLYCOL 3350 17 GM PACKET. PO SCH (09:00)
[2016-08-01] MEDS ORDERED: LIDOCAINE 1% / SOD BICARB 8.4% 20 ML VIAL. IJ ONE ×2 (09:42→10:15)
[2016-08-01] MEDS ORDERED: ALBUMIN HUMAN 25% 100 ML IV ONE (10:15)
--- NOTE | 2016-08-01 10:19 | PDOC ---
G I PROGRESS NOTE Subjective Not in room. Suspect down for paracentesis again. Physical Exam No PE. Review of Relevant I have reviewed the following items rodrigo (where applicable) has been applied. Medications Current Medications Ondansetron HCl (Zofran) 4 mg PRN Q8HRS PRN IV NAUSEA/VOMITING; Start 07/26/16 at 20:45; Stop 07/27/16 at 20:44; Status DC Acetaminophen (Tylenol) 650 mg PRN Q4HRS PRN PO FEVER; Start 07/26/16 at 20:45 ; Stop 07/27/16 at 20:44; Status DC Oxycodone HCl (Roxicodone) 15 mg PRN Q4HRS PRN PO SEVERE PAIN; Start 07/26/16 at 22:00; Stop 07/26/16 at 22:06; Status DC Polyethylene Glycol (miraLAX PACKET) 17 gm DAILY PO ; Start 07/27/16 at 09:00 Albuterol/ Ipratropium (Duoneb) 3 ml RTQID NEB Last administered on 08/01/16 07:34; Start 07/26/16 at 23:00 Oxycodone HCl (Roxicodone) 15 mg PRN Q4HRS PRN PO SEVERE PAIN Last administered on 08/01/16 03:04; Start 07/26/16 at 22:06 Albuterol Sulfate (Ventolin Neb Soln) 2.5 mg PRN Q4HRS PRN NEB SHORTNESS OF BREATH; Start 07/27/16 at 12:00 Non-Formulary Medication 1 puff PRN Q6HRS PRN INH SHORTNESS OF BREATH; Start at 12:00; Status UNV Oxycodone HCl (Roxicodone) 40 mg PRN Q6HRS PRN PO PAIN; Start 07/27/16 at 12:00 ; Stop 07/27/16 at 13:26; Status DC Acetaminophen (Tylenol) 650 mg PRN Q6HRS PRN PO MILD PAIN / TEMP; Start at 13:30 Ondansetron HCl (Zofran) 4 mg PRN Q6HRS PRN IV NAUSEA/VOMITING; Start 07/27/16 at 13:30 Enoxaparin Sodium (Lovenox 40mg Syringe) 40 mg Q24H SQ ; Start 07/27/16 at 14:00 Morphine Sulfate 2 mg 2 mg PRN Q4HRS PRN IV PAIN SEV Last administered on 00:56; Start 07/28/16 at 12:15 Albumin Human 100 ml @ 100 mls/hr 1X ONCE IV Last administered on 07/28/16 13:43; Start 07/28/16 at 13:00; Stop 07/28/16 at 13:59; Status DC Albumin Human (Albuminar) 100 ml @ 100 mls/hr 1X ONCE IV Last administered on 07/28/16 16:58; Start 07/28/16 at 15:30; Stop 07/28/16 at 16:29; Status DC Famotidine (Pepcid) 20 mg 1X ONCE PO Last administered on 07/31/16 20:30; Start 07/31/16 at 20:00; Stop 07/31/16 at 20:01; Status DC Lidocaine/Sodium Bicarbonate (Buffered Lidocaine 1%) 20 ml STK-MED ONCE IJ ; Start 08/01/16 at 09:42; Stop 08/01/16 at 09:43; Status DC Lidocaine/Sodium Bicarbonate 10 ml 10 ml 1X ONCE IJ ; Start 08/01/16 at 10:15; Stop 08/01/16 at 10:16; Status UNV Albumin Human (Albuminar) 100 ml @ 100 mls/hr 1X ONCE IV ; Start 08/01/16 at 10:15; Stop 08/01/16 at 11:14; Status UNV Active Scripts Active Reported Advil (Ibuprofen) 200 Mg Tablet 400 Mg PO PRN PRN Proair Hfa Inhaler (Albuterol Sulfate) 8.5 Gm Hfa.aer.ad 1 Puff INH PRN Q6HRS PRN Albuterol Sulfate Neb Soln (Albuterol Sulfate) 2.5 Mg/3 Ml Vial.neb 1 Vial NEB PRN Q4HRS Oxycodone Hcl 10 Mg Tablet 40 Mg PO PRN Q4-6HRS PRN Vitals/I & O Vital Sign - Last 24 Hours 07/31/16 07/31/16 07/31/16 07/31/16 11:00 12:04 15:30 16:00 Temp 98.2 98.3 98.2 98.3 Pulse 101 91 Resp 16 20 B/P 90/53 91/56 Pulse Ox 92 96 O2 Delivery Nasal Cannula Nasal Cannula Nasal Cannula Nasal Cannula O2 Flow Rate 2.0 2.0 07/31/16 07/31/16 07/31/16 07/31/16 19:00 19:29 20:05 23:00 Temp 98.8 97.8 98.8 97.8 Pulse 97 98 Resp 18 20 B/P 94/50 74/46 Pulse Ox 94 91 96 O2 Delivery Room Air Nasal Cannula O2 Flow Rate 2.0 08/01/16 08/01/16 08/01/16 08/01/16 03:00 07:00 07:34 08:00 Temp 97.7 97.9 97.7 97.9 Pulse 98 93 Resp 20 18 B/P 97/50 87/50 Pulse Ox 96 98 95 O2 Delivery Nasal Cannula Nasal Cannula Nasal Cannula O2 Flow Rate 2.0 2.0 2.0 08/01/16 09:57 Pulse 77 Resp 18 Pulse Ox 92 O2 Delivery Nasal Cannula O2 Flow Rate 2.0 Intake and Output 07/31/16 07/31/16 08/01/16 15:00 23:00 07:00 Intake Total 200 ml 650 ml 240 ml Balance 200 ml 650 ml 240 ml Problem List Problems Medical Problems: (1) Abdominal pain Status: Acute (2) Dyspnea Status: Acute (3) Hypoxemia Status: Acute Assessment Probable malignant ascites; prior w/u's at [facility] and data unavailable. Plan of Care: Continue current Tx, Mgmt Plan of Care Note Would continue efforts to transfer back to [facility] so we do not repeat testing unnecessarily. DARLENE FRANK MD Aug 01, 2016 10:19
--- NOTE | 2016-08-01 10:33 | PDOC ---
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 No apparent complication. Infusion of 25 grams 25% albumin initiated during paracentesis procedure. Disposition Disposition From IR return to [facility]. F/u with HIMS and GI. Full report to follow. GEREMIAS NEWBERRY MD Aug 01, 2016 10:33
[2016-08-01] MEDS: MORPHINE SULFATE 2 MG/ML DISP.SYRIN. IV PRN ×2 (11:58→16:19)
[2016-08-01 12:06] LABS: BF CLARITY CLOUDY; BF COLOR RED
--- NOTE | 2016-08-01 12:36 | PDOC ---
PROGRESS NOTES Chief Complaint Chief Complaint sob 1. COPD 2. Arthritis, 3. HTN 4. Liver Disease, unclear etiology 5. ascites, possible 2/2 cirrhosis, Possible Malignant ascites, [facility] pt [facility]. 6. anemia, normocytic 7. body and bone pain 8. Mild hypotension. Plan: 1. DuoNeb, albuterol prn, 2. GI consulted, paracentesis 07/28 and 08/01, administer albumin cytology pending. 3. lower ext US neg for DVT, abdominal US done, bone scan negative 4. Pain control, 5. [facility], possible DC to SNU, vs , d/w briefcase sewer. History of Present Illness History of Present Illness no fever pain 5/10, better, with morphine Vitals Vitals Vital Signs Date Time Temp Pulse Resp B/P Pulse Ox O2 Delivery O2 Flow Rate FiO2 08/01/16 11:58 20 Nasal Cannula 2.0 08/01/16 11:40 97 76/97 08/01/16 09:57 92 08/01/16 07:00 97.9 97.9 Physical Exam General: Alert, Oriented X3, Cooperative Heart: Regular rate, Normal S1 Lungs: Clear, Crackles Abdomen: Normal bowel sounds, Soft, No tenderness, Other Extremities: No clubbing, No cyanosis, Other (bl lower ext severe adema) Labs LABS Laboratory Tests Test 08/01/16 10:00 Body Fluid Source Ascites Body Fluid Tube Number Body Fluid Color Red Body Fluid Clarity Cloudy Body Fluid Nucleated Cells 33635/cmm Body Fluid Mononuclear WBCs (%) 90% Body Fluid Polymorphonuclear Cells 10% Body Fluid Total RBCs Counted 184/cmm Assessment and Plan Assessmemt and Plan Problems Medical Problems: (1) Abdominal pain Status: Acute (2) Dyspnea Status: Acute (3) Hypoxemia Status: Acute Problems: Comment Review of Relevant I have reviewed the following items rodrigo (where applicable) has been applied. Labs Laboratory Tests Test 08/01/16 10:00 Body Fluid Source Ascites Body Fluid Tube Number Body Fluid Color Red Body Fluid Clarity Cloudy Body Fluid Nucleated Cells 00301/cmm Body Fluid Mononuclear WBCs (%) 90% Body Fluid Polymorphonuclear Cells 10% Body Fluid Total RBCs Counted 184/cmm Laboratory Tests Test 08/01/16 10:00 Body Fluid Source Ascites Body Fluid Tube Number Body Fluid Color Red Body Fluid Clarity Cloudy Body Fluid Nucleated Cells 50520/cmm Body Fluid Mononuclear WBCs (%) 90% Body Fluid Polymorphonuclear Cells 10% Body Fluid Total RBCs Counted 184/cmm Medications Current Medications Ondansetron HCl (Zofran) 4 mg PRN Q8HRS PRN IV NAUSEA/VOMITING; Start 07/26/16 at 20:45; Stop 07/27/16 at 20:44; Status DC Acetaminophen (Tylenol) 650 mg PRN Q4HRS PRN PO FEVER; Start 07/26/16 at 20:45 ; Stop 07/27/16 at 20:44; Status DC Oxycodone HCl (Roxicodone) 15 mg PRN Q4HRS PRN PO SEVERE PAIN; Start 07/26/16 at 22:00; Stop 07/26/16 at 22:06; Status DC Polyethylene Glycol (miraLAX PACKET) 17 gm DAILY PO ; Start 07/27/16 at 09:00 Albuterol/ Ipratropium (Duoneb) 3 ml RTQID NEB Last administered on 08/01/16 11:36; Start 07/26/16 at 23:00 Oxycodone HCl (Roxicodone) 15 mg PRN Q4HRS PRN PO SEVERE PAIN Last administered on 08/01/16 03:04; Start 07/26/16 at 22:06 Albuterol Sulfate (Ventolin Neb Soln) 2.5 mg PRN Q4HRS PRN NEB SHORTNESS OF BREATH; Start 07/27/16 at 12:00 Non-Formulary Medication 1 puff PRN Q6HRS PRN INH SHORTNESS OF BREATH; Start at 12:00; Status UNV Oxycodone HCl (Roxicodone) 40 mg PRN Q6HRS PRN PO PAIN; Start 07/27/16 at 12:00 ; Stop 07/27/16 at 13:26; Status DC Acetaminophen (Tylenol) 650 mg PRN Q6HRS PRN PO MILD PAIN / TEMP; Start at 13:30 Ondansetron HCl (Zofran) 4 mg PRN Q6HRS PRN IV NAUSEA/VOMITING; Start 07/27/16 at 13:30 Enoxaparin Sodium (Lovenox 40mg Syringe) 40 mg Q24H SQ ; Start 07/27/16 at 14:00 Morphine Sulfate 2 mg 2 mg PRN Q4HRS PRN IV PAIN SEV Last administered on 11:58; Start 07/28/16 at 12:15 Albumin Human 100 ml @ 100 mls/hr 1X ONCE IV Last administered on 07/28/16 13:43; Start 07/28/16 at 13:00; Stop 07/28/16 at 13:59; Status DC Albumin Human (Albuminar) 100 ml @ 100 mls/hr 1X ONCE IV Last administered on 07/28/16 16:58; Start 07/28/16 at 15:30; Stop 07/28/16 at 16:29; Status DC Famotidine (Pepcid) 20 mg 1X ONCE PO Last administered on 07/31/16 20:30; Start 07/31/16 at 20:00; Stop 07/31/16 at 20:01; Status DC Lidocaine/Sodium Bicarbonate (Buffered Lidocaine 1%) 20 ml STK-MED ONCE IJ ; Start 08/01/16 at 09:42; Stop 08/01/16 at 09:43; Status DC Lidocaine/Sodium Bicarbonate 10 ml 10 ml 1X ONCE IJ Last administered on 10:15; Start 08/01/16 at 10:15; Stop 08/01/16 at 10:17; Status DC Albumin Human (Albuminar) 100 ml @ 100 mls/hr 1X ONCE IV Last administered on 08/01/16 10:35; Start 08/01/16 at 10:15; Stop 08/01/16 at 11:14; Status DC Active Scripts Active Reported Advil (Ibuprofen) 200 Mg Tablet 400 Mg PO PRN PRN Proair Hfa Inhaler (Albuterol Sulfate) 8.5 Gm Hfa.aer.ad 1 Puff INH PRN Q6HRS PRN Albuterol Sulfate Neb Soln (Albuterol Sulfate) 2.5 Mg/3 Ml Vial.neb 1 Vial NEB PRN Q4HRS Oxycodone Hcl 10 Mg Tablet 40 Mg PO PRN Q4-6HRS PRN Vitals/I & O Vital Sign - Last 24 Hours 07/31/16 07/31/16 07/31/16 07/31/16 15:30 16:00 19:00 19:29 Temp 98.3 98.8 98.3 98.8 Pulse 91 97 Resp 20 18 B/P 91/56 94/50 Pulse Ox 96 94 91 O2 Delivery Nasal Cannula Nasal Cannula Room Air O2 Flow Rate 2.0 07/31/16 07/31/16 08/01/16 08/01/16 20:05 23:00 03:00 07:00 Temp 97.8 97.7 97.9 97.8 97.7 97.9 Pulse 98 98 93 Resp 20 20 18 B/P 74/46 97/50 87/50 Pulse Ox 96 96 98 O2 Delivery Nasal Cannula Nasal Cannula O2 Flow Rate 2.0 2.0 08/01/16 08/01/16 08/01/16 08/01/16 07:34 08:00 09:57 11:25 Pulse 77 100 Resp 18 B/P 162/108 Pulse Ox 95 92 O2 Delivery Nasal Cannula Nasal Cannula Nasal Cannula O2 Flow Rate 2.0 2.0 2.0 08/01/16 08/01/16 08/01/16 11:36 11:40 11:58 Pulse 97 Resp 20 B/P 76/97 O2 Delivery Nasal Cannula Nasal Cannula O2 Flow Rate 2.0 2.0 Intake and Output 07/31/16 07/31/16 08/01/16 15:00 23:00 07:00 Intake Total 200 ml 650 ml 240 ml Balance 200 ml 650 ml 240 ml NURIS ONEIL MD Aug 01, 2016 12:36
[2016-08-01] MEDS: ENOXAPARIN 40 MG/0.4 ML DISP.SYRIN. SQ SCH (13:55)
[2016-08-02 03:28] VITALS: BP 90/41
[2016-08-02] MEDS: OXYCODONE IR 5 MG TABLET. PO PRN ×2 (04:46→11:08)
--- NOTE | 2016-08-02 06:46 | RAD ---
Ultrasound-guided diagnostic and therapeutic paracentesis Indication: 66-year-old male with recurrent, symptomatic, large volume ascites, which is by history malignant. Image guided diagnostic/therapeutic paracentesis has been requested. Anesthesia: Local only. Procedure: Informed consent was obtained from the patient. This procedure was performed in the CT suite, with the patient in his hospital bed. Preliminary ultrasound examination confirmed the presence of a large volume of abdominal/pelvic ascites. A right abdominal peritoneal fluid collection, suitable for sono guided paracentesis, was selected, was marked, and was documented with a single hard copy ultrasound image. That area was then prepped and draped in the usual sterile fashion. Using aseptic technique, local anesthesia, and direct ultrasound guidance, a 21-gauge micropuncture needle was successfully introduced into the selected peritoneal fluid collection. The 21-gauge needle was exchanged over a microguidewire for a micropuncture sheath, which was, in turn, exchanged over a 0.035 inch guidewire for a 6 [place] drainage catheter. Approximately 3800 cc of reddish-turbid ascites was removed, samples which were submitted to the clinical laboratory per routine protocol. The drainage catheter was then removed and a sterile dressing was applied. Patient tolerated the procedure well without apparent complication. Infusion of 25 g 25% albumin was initiated during the paracentesis procedure. Impression: Successful, uneventful ultrasound-guided diagnostic and therapeutic paracentesis, as described.
[2016-08-02 07:08] VITALS: BP 78/46
[2016-08-02] MEDS: IPRATRPIUM/ALBUTEROL 0.5/2.5MG 3 ML NEBU. NEB SCH ×3 (07:39→16:10)
[2016-08-02] MEDS: POLYETHYLENE GLYCOL 3350 17 GM PACKET. PO SCH ×2 (09:00→11:09)
--- NOTE | 2016-08-02 10:59 | PDOC ---
PROGRESS NOTES Chief Complaint Chief Complaint sob 1. COPD 2. Arthritis, 3. HTN 4. Liver Disease, unclear etiology 5. ascites, possible 2/2 cirrhosis, Possible Malignant ascites, [facility] pt [facility] needed. 6. anemia, normocytic 7. body and bone pain 8. Mild hypotension. appears chronic stable, asymptomatic, Plan: 1. DuoNeb, albuterol prn, 2. GI consulted, paracentesis 07/28 and 08/01, administer albumin cytology pending. 3. lower ext US neg for DVT, abdominal US done, bone scan negative 4. Pain control, 5. Pt wants to go to [place], no beds available, possible DC to SNU, vs , d/w case coordinator. History of Present Illness History of Present Illness no fever pain 5/10, better, with morphine Vitals Vitals Vital Signs Date Time Temp Pulse Resp B/P Pulse Ox O2 Delivery O2 Flow Rate FiO2 08/02/16 08:00 Nasal Cannula 2.0 08/02/16 07:41 99 08/02/16 07:08 96.3 103 18 78/46 96.3 Physical Exam General: Alert, Oriented X3, Cooperative Heart: Regular rate, Normal S1 Lungs: Clear, Crackles Abdomen: Normal bowel sounds, Soft, No tenderness, Other Extremities: No clubbing, No cyanosis, Other (bl lower ext severe adema) Assessment and Plan Assessmemt and Plan Problems Medical Problems: (1) Abdominal pain Status: Acute (2) Dyspnea Status: Acute (3) Hypoxemia Status: Acute Problems: Comment Review of Relevant I have reviewed the following items rodrigo (where applicable) has been applied. Labs Laboratory Tests Test 08/01/16 10:00 Body Fluid Source Ascites Body Fluid Tube Number Body Fluid Color Red Body Fluid Clarity Cloudy Body Fluid Nucleated Cells 75567/cmm Body Fluid Mononuclear WBCs (%) 90% Body Fluid Polymorphonuclear Cells 10% Body Fluid Total RBCs Counted 184/cmm Body Fluid Glucose 105mg/dL (.) Microbiology 08/01/16 Gram Stain - Final, Complete Medications Current Medications Ondansetron HCl (Zofran) 4 mg PRN Q8HRS PRN IV NAUSEA/VOMITING; Start 07/26/16 at 20:45; Stop 07/27/16 at 20:44; Status DC Acetaminophen (Tylenol) 650 mg PRN Q4HRS PRN PO FEVER; Start 07/26/16 at 20:45 ; Stop 07/27/16 at 20:44; Status DC Oxycodone HCl (Roxicodone) 15 mg PRN Q4HRS PRN PO SEVERE PAIN; Start 07/26/16 at 22:00; Stop 07/26/16 at 22:06; Status DC Polyethylene Glycol (miraLAX PACKET) 17 gm DAILY PO ; Start 07/27/16 at 09:00 Albuterol/ Ipratropium (Duoneb) 3 ml RTQID NEB Last administered on 08/02/16 07:39; Start 07/26/16 at 23:00 Oxycodone HCl (Roxicodone) 15 mg PRN Q4HRS PRN PO SEVERE PAIN Last administered on 08/02/16 04:46; Start 07/26/16 at 22:06 Albuterol Sulfate (Ventolin Neb Soln) 2.5 mg PRN Q4HRS PRN NEB SHORTNESS OF BREATH; Start 07/27/16 at 12:00 Non-Formulary Medication 1 puff PRN Q6HRS PRN INH SHORTNESS OF BREATH; Start at 12:00; Status UNV Oxycodone HCl (Roxicodone) 40 mg PRN Q6HRS PRN PO PAIN; Start 07/27/16 at 12:00 ; Stop 07/27/16 at 13:26; Status DC Acetaminophen (Tylenol) 650 mg PRN Q6HRS PRN PO MILD PAIN / TEMP; Start at 13:30 Ondansetron HCl (Zofran) 4 mg PRN Q6HRS PRN IV NAUSEA/VOMITING; Start 07/27/16 at 13:30 Enoxaparin Sodium (Lovenox 40mg Syringe) 40 mg Q24H SQ Last administered on 13:55; Start 07/27/16 at 14:00 Morphine Sulfate 2 mg 2 mg PRN Q4HRS PRN IV PAIN SEV Last administered on 16:19; Start 07/28/16 at 12:15 Albumin Human 100 ml @ 100 mls/hr 1X ONCE IV Last administered on 07/28/16 13:43; Start 07/28/16 at 13:00; Stop 07/28/16 at 13:59; Status DC Albumin Human (Albuminar) 100 ml @ 100 mls/hr 1X ONCE IV Last administered on 07/28/16 16:58; Start 07/28/16 at 15:30; Stop 07/28/16 at 16:29; Status DC Famotidine (Pepcid) 20 mg 1X ONCE PO Last administered on 07/31/16 20:30; Start 07/31/16 at 20:00; Stop 07/31/16 at 20:01; Status DC Lidocaine/Sodium Bicarbonate (Buffered Lidocaine 1%) 20 ml STK-MED ONCE IJ ; Start 08/01/16 at 09:42; Stop 08/01/16 at 09:43; Status DC Lidocaine/Sodium Bicarbonate 10 ml 10 ml 1X ONCE IJ Last administered on 10:15; Start 08/01/16 at 10:15; Stop 08/01/16 at 10:17; Status DC Albumin Human (Albuminar) 100 ml @ 100 mls/hr 1X ONCE IV Last administered on 08/01/16 10:35; Start 08/01/16 at 10:15; Stop 08/01/16 at 11:14; Status DC Active Scripts Active Reported Advil (Ibuprofen) 200 Mg Tablet 400 Mg PO PRN PRN Proair Hfa Inhaler (Albuterol Sulfate) 8.5 Gm Hfa.aer.ad 1 Puff INH PRN Q6HRS PRN Albuterol Sulfate Neb Soln (Albuterol Sulfate) 2.5 Mg/3 Ml Vial.neb 1 Vial NEB PRN Q4HRS Oxycodone Hcl 10 Mg Tablet 40 Mg PO PRN Q4-6HRS PRN Vitals/I & O Vital Sign - Last 24 Hours 08/01/16 08/01/16 08/01/16 08/01/16 11:25 11:36 11:40 11:55 Pulse 100 97 100 B/P 162/108 76/97 78/34 O2 Delivery Nasal Cannula O2 Flow Rate 2.0 08/01/16 08/01/16 08/01/16 08/01/16 11:58 12:10 12:40 12:46 Pulse 103 105 Resp 20 20 B/P 90/49 91/47 Pulse Ox 92 O2 Delivery Nasal Cannula Nasal Cannula O2 Flow Rate 2.0 2.0 1/08/01/16 08/01/16 08/01/16 13:10 13:46 15:00 15:14 Temp 98.2 98.2 Pulse 102 95 Resp 20 18 B/P 82/46 76/42 Pulse Ox 92 98 O2 Delivery Nasal Cannula Nasal Cannula Nasal Cannula O2 Flow Rate 2.0 2.0 2.0 08/01/16 08/01/16 08/01/16 08/01/16 16:19 16:49 19:05 20:00 Temp 97.7 97.7 Pulse 96 Resp 20 20 16 B/P 73/41 Pulse Ox 98 93 O2 Delivery Nasal Cannula Nasal Cannula Nasal Cannula Nasal Cannula O2 Flow Rate 2.0 2.0 2.0 2.0 08/01/16 08/01/16 08/01/16 08/02/16 20:02 21:05 23:43 03:28 Temp 97.5 96.1 97.5 96.1 Pulse 97 95 Resp 20 16 16 B/P 76/47 90/41 Pulse Ox 91 91 O2 Delivery Room Air Nasal Cannula Nasal Cannula O2 Flow Rate 2.0 2.0 08/02/16 08/02/16 08/02/16 07:08 07:41 08:00 Temp 96.3 96.3 Pulse 103 Resp 18 B/P 78/46 Pulse Ox 95 99 O2 Delivery Nasal Cannula Room Air Nasal Cannula O2 Flow Rate 2.0 2.0 Intake and Output 08/01/16 08/01/16 08/02/16 15:00 23:00 07:00 Intake Total 400 ml Output Total 3800 ml Balance -3800 ml 400 ml NURIS ONEIL MD Aug 02, 2016 10:59
[2016-08-02 11:01] VITALS: BP 82/40
--- NOTE | 2016-08-02 12:57 | PDOC ---
Subjective: Subjective: Ready to DC. Objective: Objective: Per RN - DC w/ home health today, malignant cells in ascitic fluid. Seen w/ Dr. Parkinson. Vital Signs: Vital Signs Date Time Temp Pulse Resp B/P Pulse Ox O2 Delivery O2 Flow Rate FiO2 08/02/16 11:08 86 Nasal Cannula 2.0 08/02/16 11:01 97.5 50 16 82/40 97.5 PE: GEN: NAD, up to chair ABD: less distended NEURO/PSYCH: A & O 3 A/P: Malignant ascites s/p paracentesis -- Dc okay per GI - [facility] JER CUMMINGS Aug 02, 2016 12:56
[2016-08-02] MEDS: ENOXAPARIN 40 MG/0.4 ML DISP.SYRIN. SQ SCH (14:00)
[2016-08-02 15:04] VITALS: BP 91/51
[2016-08-02] MEDS: MORPHINE SULFATE 2 MG/ML DISP.SYRIN. IV PRN (15:36)
[2016-08-02] MEDS ORDERED: OXYC15TA PO ×2 (17:06→17:08)
--- NOTE | 2016-08-02 19:14 | DS ---
DATE OF DISCHARGE: 08/02/2016 DISCHARGE DIAGNOSES: 1. Malignant ascites, likely unclear etiology. 2. Chronic obstructive pulmonary disease. 3. Physical debility. 4. Liver disease, unclear etiology. 5. Hypertension. 6. Chronic obstructive pulmonary disease. 7. Mild hypotension, appears to be chronic symptomatic. BRIEF HOSPITAL COURSE: A 66-year-old male patient admitted to the [facility] recently and had workup for ascites, apparently looks like it is malignant ascites. 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 The patient was evaluated by Dr. Parkinson during hospitalization and he had investigations such as a bone scan, which is negative for any acute findings, post paracentesis, the patient's symptoms improved and he could able to go home with home health services and follow up with [facility]. I did discuss with the patient about his new test results and the patient verbalized understanding of his condition and he will follow up with the [facility] and also he told me that he had some imaging studies done at [facility] for suspected malignancy. DISCHARGE EXAMINATION: Please see my progress note. DISCHARGE CONDITION: Stable. PROGNOSIS: Guarded. FOLLOWUP: With PCP. Total time spent for discharge is 35 minutes for the patient's education, counseling, and coordination of care. DISCHARGE MEDICATIONS: Reviewed and reconciled. NURIS ONEIL MD DR: BAL/antony JOB#: [id number] / [id number] RAINER
== END 2016-08-02 15:23 | DRG 843 ==
LOC: ER 18:29 → 6 SOUTH 20:25
PROVIDERS: ADMIT Internal Medicine Hematology & Oncology; ATTEND Internal Medicine Hematology & Oncology
PROC: 0W9G3ZZ Drainage of Peritoneal Cavity, Percutaneous Approach (ICD-10-PCS; principal; 2016-08-01)
PROC: 0W9G3ZX Drainage of Peritoneal Cavity, Percutaneous Approach, Diagnostic (ICD-10-PCS; 2016-08-01)
DX: C80.1 Malignant (primary) neoplasm, unspecified (principal); J96.01 Acute respiratory failure with hypoxia; R18.0 Malignant ascites; K76.9 Liver disease, unspecified; R62.7 Adult failure to thrive; D64.9 Anemia, unspecified; I10 Essential (primary) hypertension; J44.9 Chronic obstructive pulmonary disease, unspecified; K21.9 Gastro-esophageal reflux disease without esophagitis; M19.90 Unspecified osteoarthritis, unspecified site; I95.9 Hypotension, unspecified; M54.9 Dorsalgia, unspecified; M79.606 Pain in leg, unspecified; R63.0 Anorexia; R63.4 Abnormal weight loss; Z68.22 Body mass index [BMI] 22.0-22.9, adult; Z87.891 Personal history of nicotine dependence
CPT/HCPCS: 36415; 49083; 71010; 76705; 76942; 78306; 80048; 80076; 82945; 83615; 84157; 85027; 85610; 87071; 87075; 87205; 87804; 88112; 88305; 88341; 88342; 89050; 93005; 93970; 94250; 94620; 94640; 94760; 96374; A4215; A9503; C1729; C1892; C1894; J1650; J2270; J7620; P9046; 97530; 97535; 99285-25; G0641